=== PATIENT | female | born 1950 | race Caucasian/White ===

== ENCOUNTER → 2017-08-25 | Outpatient (CLI) | payer MEDICARE, BC ==
[~2017-08-25] MED LIST: BUPR100 PO; IBUP800 PO; LISHYD1012 PO; MAGOXI400 PO; OMEP20ER PO; POTASSIUM SUPPLEMENT PO; SIMV80 PO
[2017-08-25 12:22] LABS: Source, Urine Clean Catch
[2017-08-25 14:21] LABS: Bilirubin, Urine Neg (Neg); Blood, Urine 1+ (Neg); Glucose Qualitative, Urine Neg (Neg); Ketones, Urine Neg (Neg); Leukocyte Esterase, Urine Neg (Neg); Nitrite, Urine Neg (Neg); Protein, Urine Neg (Neg); Specific Gravity, Urine 1.005 (1.003-1.022); Urobilinogen, Urine NORM (Normal)
[2017-08-25 14:41] LABS: Hematocrit 38.7 % (33.0-51.0); Hemoglobin 13.3 g/dL (11.5-16.0)
[2017-08-25 14:53] LABS: Uric Acid, Blood 5.3 mg/dL (2.6-6.0)
[2017-08-25 14:58] LABS: Albumin, Blood 3.5 g/dL (3.4-5.0); Anion Gap 5 mmol/L (6-16); Blood Urea Nitrogen 20 mg/dL (8-24); CO2, Blood 30 mmol/L (21-32); Calcium, Blood 9.2 mg/dL (8.5-10.1); Chloride, Blood 102 mmol/L (98-108); Creatinine, Blood 1.11 mg/dL (0.40-1.00); Glomerular Filtration Rate 52 (60-); Glucose, Blood 91 mg/dL (70-99); Phosphorus, Blood 3.1 mg/dL (2.5-4.9); Potassium, Blood 4.1 mmol/L (3.5-5.5); Sodium, Blood 137 mmol/L (136-145)
[2017-08-25 14:59] LABS: Creatinine, Urine Random 82.8 mg/dL (27.00-270.00); Protein, Urine Random 8.8 mg/dL (0.0-11.9)
[2017-08-25 15:11] LABS: Appearance, Urine Clear (Clear); Color, Urine Yellow (P-Yellow)
[2017-08-25 15:14] LABS: Bacteria Rare /hpf; Squamous Epithelial Cells Few /hpf (Few); White Blood Cells, Urine 0-2 /hpf (0-5)
== END | disposition home or self-care (01) ==
LOC: OLS 12:18 → LAB SHORT 12:18
PROVIDERS: Internal Medicine
DX: N18.3 Chronic kidney disease, stage 3 (moderate) (principal); D63.1 Anemia in chronic kidney disease; E55.9 Vitamin D deficiency, unspecified; N25.81 Secondary hyperparathyroidism of renal origin; M10.9 Gout, unspecified
CPT/HCPCS: 36415; 80069; 81001; 82306; 82570; 83970; 84156; 84550; 85014; 85018

== ENCOUNTER 2017-10-26 13:00 | Emergency (ER) | payer MEDICARE, BC ==
[~2017-10-26] VITALS: Ht 162.6 cm; Wt 74.4 kg
[2017-10-26] MEDS ORDERED: LISI20 PO (13:16)
[2017-10-26] MEDS ORDERED: ANAS1 PO (13:17)
[2017-10-26] MEDS ORDERED: Cyclobenzaprine5 MG PO (14:30)
[2017-10-26] MEDS ORDERED: Percocet 5-3251 EACH PO (14:30)
== END 2017-10-26 14:40 | disposition home or self-care (01) ==
LOC: ER 13:00
DX: M25.551 Pain in right hip (principal); I12.9 Hypertensive chronic kidney disease with stage 1 through stage 4 chronic kidney disease, or unspecified chronic kidney disease; N18.9 Chronic kidney disease, unspecified; K21.9 Gastro-esophageal reflux disease without esophagitis; E78.00 Pure hypercholesterolemia, unspecified; Z79.899 Other long term (current) drug therapy; Z87.891 Personal history of nicotine dependence; Z96.641 Presence of right artificial hip joint
CPT/HCPCS: 73502; 96372; 99283-25; J1885

== ENCOUNTER 2018-07-01 08:50 | Day surgery (SDC) | payer MEDICARE, BC ==
[~2018-07-01] VITALS: Ht 162.6 cm; Wt 75.4 kg
[~2018-07-01 08:50] MED LIST changes: +ALBU90OI61 INH; +ANAS1 PO; +ANASTROZOLE PO; +Bupropion HCl100 M1 PO; +Cyclobenzaprine5 MG PO; +IBU800 MG PO; +LISI20 PO; +Omeprazole20 M1 PO; +Percocet 5-3251 EACH PO; +Vitamin D2000 UNIT PO
[2018-07-01] MEDS ORDERED: ANAS1 PO (09:45)
== END 2018-07-01 11:09 | disposition home or self-care (01) ==
LOC: ORSCSDS 08:50
PROVIDERS: Ophthalmology
PROC: 08RK3JZ Replacement of Left Lens with Synthetic Substitute, Percutaneous Approach (ICD-10-PCS; principal; 2018-07-01 10:30)
DX: H25.12 Age-related nuclear cataract, left eye (principal); I10 Essential (primary) hypertension; G47.33 Obstructive sleep apnea (adult) (pediatric); Z79.899 Other long term (current) drug therapy
CPT/HCPCS: 82947; J2001; J2250; J3010; J3301; J7120; V2632

== ENCOUNTER 2020-07-09 12:52 | Emergency (ER) | payer MEDICARE, BC ==
[~2020-07-09] VITALS: Ht 160 cm; Wt 75.8 kg
== END 2020-07-09 18:06 | disposition short-term general hospital (02) ==
LOC: ER 12:52
DX: K83.1 Obstruction of bile duct (principal); C25.9 Malignant neoplasm of pancreas, unspecified
CPT/HCPCS: 74177; 99284-25; J7030; Q9967

== ENCOUNTER → 2020-07-09 | Outpatient (CLI) | payer MEDICARE, BC ==
[~2020-07-09] MED LIST changes: -Bupropion HCl100 M1 PO; +PROAIR RESPICL90 MCG INH; +ZESTORETIC 20-1 EAC2 PO
[2020-07-09 10:45] LABS: BASOPHILS ABSOLUTE AUTO 0.06 K/mm3 (0.00-0.23); BASOPHILS PERCENT AUTO 1 % (0-2); EOSINOPHILS ABSOLUTE AUTO 1.07 K/mm3 (0.00-0.68); EOSINOPHILS PERCENT AUTO 9 % (0-6); Hematocrit 35.2 % (33.0-51.0); Hemoglobin 12.9 g/dL (11.5-16.0); IMMATURE GRAN ABSOLUTE AUTO 0.08 K/mm3 (0.00-0.10); IMMATURE GRAN PERCENT AUTO 1 % (0-1); LYMPHOCYTES ABSOLUTE AUTO 1.04 K/mm3 (0.84-5.20); LYMPHOCYTES PERCENT AUTO 9 % (21-46); MONOCYTES ABSOLUTE AUTO 0.65 K/mm3 (0.16-1.47); MONOCYTES PERCENT AUTO 5 % (4-13); Mean Corpuscular HGB 31.5 pg (26.0-34.0); Mean Corpuscular HGB Conc 36.6 g/dL (31.5-36.5); Mean Corpuscular Volume 86 fL (80-100); NEUTROPHILS ABSOLUTE AUTO 9.26 K/mm3 (1.96-9.15); NEUTROPHILS PERCENT AUTO 76 % (41-73); Platelet Count 470 K/mm3 (150-400); RDW Coefficient Variation 13.5 % (11.7-14.2); RDW Standard Deviation 42.1 fL (35.1-46.3); White Blood Cell Count 12.16 K/mm3 (4.00-11.30)
[2020-07-09 10:56] LABS: Albumin, Blood 3.1 g/dL (3.4-5.0); Albumin/Globulin Ratio 0.8 (0.8-1.8); Bilirubin, Total 15.8 mg/dL (0.1-1.0); Bun/Creatinine Ratio 16.8 (12.0-20.0); Calcium, Blood 9.4 mg/dL (8.5-10.1); Creatinine, Blood 1.13 mg/dL (0.40-1.00); Globulin, Blood 4.1 g/dL (2.2-4.0); Potassium, Blood 2.9 mmol/L (3.5-5.5); Total Protein, Blood 7.2 g/dL (6.4-8.2)
[2020-07-09 11:05] LABS: International Normalized Ratio 1.1; Prothrombin Time Results 11.8 Sec (9.7-11.5)
[2020-07-10 08:09] LABS: HBSAG SCREEN Negative (Negative); HEP A AB, IGM Negative (Negative); HEP B CORE AB, IGM Negative (Negative); HEP C VIRUS AB <0.1 (0.0-0.9)
== END | disposition home or self-care (01) ==
LOC: LAB SHORT 10:35
PROVIDERS: Physician Assistant
DX: N18.9 Chronic kidney disease, unspecified (principal); R17 Unspecified jaundice
CPT/HCPCS: 80053; 80074; 82140; 82150; 83690; 85025; 85610; 85730

== ENCOUNTER 2020-07-18 19:25 | Inpatient (IN) | payer MEDICARE, BC ==
[~2020-07-18] VITALS: Ht 162.6 cm; Wt 73.1 kg
[2020-07-18 20:37] LABS: BASOPHILS ABSOLUTE AUTO 0.11 K/mm3 (0.00-0.23); BASOPHILS PERCENT AUTO 1 % (0-2); EOSINOPHILS ABSOLUTE AUTO 0.64 K/mm3 (0.00-0.68); EOSINOPHILS PERCENT AUTO 4 % (0-6); Hematocrit 35.6 % (33.0-51.0); Hemoglobin 12.1 g/dL (11.5-16.0); IMMATURE GRAN ABSOLUTE AUTO 0.24 K/mm3 (0.00-0.10); IMMATURE GRAN PERCENT AUTO 1 % (0-1); LYMPHOCYTES ABSOLUTE AUTO 1.53 K/mm3 (0.84-5.20); LYMPHOCYTES PERCENT AUTO 8 % (21-46); MONOCYTES ABSOLUTE AUTO 1.63 K/mm3 (0.16-1.47); MONOCYTES PERCENT AUTO 9 % (4-13); Mean Corpuscular HGB 31.8 pg (26.0-34.0); Mean Corpuscular Volume 93 fL (80-100); Mean Platelet Volume 9.6 fL (9.1-12.4); NEUTROPHILS PERCENT AUTO 77 % (41-73); Platelet Count 596 K/mm3 (150-400); Red Blood Cell Count 3.81 M/mm3 (3.80-5.20); White Blood Cell Count 18.35 K/mm3 (4.00-11.30)
[2020-07-18 20:56] LABS: Albumin/Globulin Ratio 0.6 (0.8-1.8); Bilirubin, Direct 3.1 mg/dL (0.0-0.3); Bilirubin, Indirect 0.6 mg/dL (0.1-0.7); Bilirubin, Total 3.7 mg/dL (0.1-1.0); Bun/Creatinine Ratio 11.8 (12.0-20.0); Calcium, Blood 8.5 mg/dL (8.5-10.1); Creatinine, Blood 6.02 mg/dL (0.40-1.00); Globulin, Blood 5.2 g/dL (2.2-4.0); Potassium, Blood 3.8 mmol/L (3.5-5.5); Total Protein, Blood 8.2 g/dL (6.4-8.2)
[2020-07-18] MEDS ORDERED: MIRALAX17 G3 PO (21:35)
[2020-07-18] MEDS ORDERED: ANASTROZOLE PO (21:35)
[2020-07-18] MEDS ORDERED: BUPR100ER PO (21:36)
[2020-07-18 22:39] LABS: International Normalized Ratio 1.16; Prothrombin Time Results 12.4 Sec (9.7-11.5)
[2020-07-19 02:11] LABS: Source, Urine Catheter
[2020-07-19 02:13] LABS: Blood, Urine 3+ (Neg); Glucose Qualitative, Urine Neg (Neg); Ketones, Urine Neg (Neg); Leukocyte Esterase, Urine 2+ (Neg); Nitrite, Urine Neg (Neg); Protein, Urine 3+ (Neg); Specific Gravity, Urine 1.025 (1.003-1.022); Urobilinogen, Urine NORM (Normal)
[2020-07-19 02:15] LABS: Appearance, Urine Hazy (Clear); Bilirubin, Urine 2+ (Neg); Color, Urine Amber (P-Yellow)
[2020-07-19 02:18] LABS: Red Blood Cells, Urine 0-2 /hpf (0-2)
[2020-07-19 02:19] LABS: Amorphous Heavy (0-Heavy); Bacteria Mod /hpf; Granular Casts 0-2 /lpf (0); Squamous Epithelial Cells Few /hpf (Few); Transitional Epithelial Cells Few /hpf (0-Rare)
[2020-07-19 03:50] LABS: BASOPHILS ABSOLUTE AUTO 0.07 K/mm3 (0.00-0.23); BASOPHILS PERCENT AUTO 1 % (0-2); EOSINOPHILS ABSOLUTE AUTO 0.47 K/mm3 (0.00-0.68); EOSINOPHILS PERCENT AUTO 3 % (0-6); Hematocrit 31.3 % (33.0-51.0); Hemoglobin 10.3 g/dL (11.5-16.0); IMMATURE GRAN ABSOLUTE AUTO 0.15 K/mm3 (0.00-0.10); IMMATURE GRAN PERCENT AUTO 1 % (0-1); LYMPHOCYTES ABSOLUTE AUTO 1.86 K/mm3 (0.84-5.20); LYMPHOCYTES PERCENT AUTO 13 % (21-46); MONOCYTES ABSOLUTE AUTO 1.43 K/mm3 (0.16-1.47); MONOCYTES PERCENT AUTO 10 % (4-13); Mean Corpuscular HGB 31.5 pg (26.0-34.0); Mean Corpuscular HGB Conc 32.9 g/dL (31.5-36.5); Mean Corpuscular Volume 96 fL (80-100); Mean Platelet Volume 9.6 fL (9.1-12.4); NEUTROPHILS ABSOLUTE AUTO 10.95 K/mm3 (1.96-9.15); NEUTROPHILS PERCENT AUTO 73 % (41-73); Platelet Count 502 K/mm3 (150-400); RDW Coefficient Variation 14.1 % (11.7-14.2); RDW Standard Deviation 49.8 fL (35.1-46.3); Red Blood Cell Count 3.27 M/mm3 (3.80-5.20); White Blood Cell Count 14.93 K/mm3 (4.00-11.30)
[2020-07-19 04:11] LABS: Albumin, Blood 2.4 g/dL (3.4-5.0); Albumin/Globulin Ratio 0.5 (0.8-1.8); Bilirubin, Total 2.9 mg/dL (0.1-1.0); Bun/Creatinine Ratio 13.9 (12.0-20.0); Calcium, Blood 7.4 mg/dL (8.5-10.1); Creatinine, Blood 5.24 mg/dL (0.40-1.00); Globulin, Blood 4.4 g/dL (2.2-4.0); Potassium, Blood 3.6 mmol/L (3.5-5.5); Total Protein, Blood 6.8 g/dL (6.4-8.2)
--- NOTE | 2020-07-19 06:30 | NUR ---
PATIENT ARRIVED FROM ED AROUND 2305, AT BEDSIDE, ABLE TO MAKE NEEDS KNOWN ALERT AND ORIENTATED SLOW IN RESPONSES, DIFFICULTY GETTING COMPLETE HISTORY PATIENT REPORTED THAT SHE SMOKED SOME HASH PRIOR TO COMING TO THE HOSPITAL FOR PAIN CONTROL, PATIENT WAS ABLE TO URINATE VIA BEDSIDE COMMODE AROUND 0200, UA SENT TO LAB, CALLS APPROPRIATELY AND FOLLOWS COMMAND, BILI DRAIN IS PATENT WITH BROWN CLEAR LIQUID DRAINAGE, MEPLIX APPLIED TO COCCYX TO PROTECT SKIN, WOUND PICTURES TAKEN IN CHART, PATIENT REFUSED WALLET TO BE SENT TO [facility].
--- NOTE | 2020-07-19 09:30 | NUR ---
UPDATE PHYSICIAN AT BEDSIDE. CONSULT TO BE PUT IN FOR NEPHROLOGY BY THIS RN. INCREASING FLUIDS PER PHYSICIAN ORDER. STRICT I&O PER PHYSICIAN.
--- NOTE | 2020-07-19 10:15 | NUR ---
UPDATE PHYSICIAN AT BEDSIDE. PHYSICIAN ORDERS TO HAVE NEPHROLOGY CONUSLTED AND ONCOLOGIST UPDATED. NO OTHER ORDERS AT THIS TIME.
--- NOTE | 2020-07-19 12:43 | NUR ---
UPDATE PT'S ONCOLOGIST UPDATED PER PHYSICIAN AND PT. SPOKE WITH DR. MONTES OFFICE.
[2020-07-19 17:22] LABS: Albumin, Blood 2.3 g/dL (3.4-5.0); Anion Gap 13 mmol/L (6-16); Blood Urea Nitrogen 76 mg/dL (8-24); Bun/Creatinine Ratio 23.8 (12.0-20.0); CO2, Blood 15 mmol/L (21-32); Chloride, Blood 107 mmol/L (98-108); Creatinine, Blood 3.19 mg/dL (0.40-1.00); Glomerular Filtration Rate 15 (60-); Glucose, Blood 99 mg/dL (70-99); Phosphorus, Blood 6.5 mg/dL (2.5-4.9); Potassium, Blood 3.3 mmol/L (3.5-5.5); Sodium, Blood 135 mmol/L (136-145)
--- NOTE | 2020-07-19 17:30 | NUR ---
REPORT GIVEN REPORT GIVEN TO ERICKSON ALDANA. PT TO BE MOVED TO ROOM 305.
--- NOTE | 2020-07-19 17:59 | NUR ---
PT TRANSPORTED PT TRANSPORTED BY WHEELCHAIR WITH ALL BELONGINGS WITH VETERINARY SURGERY TECHNOLOGIST TO ROOM 305. HOME MEDICATION SENT TO PHARMACY.
--- NOTE | 2020-07-19 19:20 | NUR ---
RECEIVED PT FROM RENE KING RN AT 1800.
--- NOTE | 2020-07-20 04:17 | NUR ---
SHIFT SUMMARY ADMITTED FOR RENAL FAILURE/HYPOTENSION. FULL CODE. PLAN TO MONITOR KIDNEY FUNCTION WITH FLUID ADMINISTRATION. PT HAS BEEN ON FLUIDS AT 125 ML/HR ALL SHIFT. PT COMPLAINED OF CHRONIC BACK PAIN AND MEDICATED X1. PT AMBULATING WITH FWW TO RESTROOM. NO NEW CONCERNS THIS SHIFT.
[2020-07-20 05:10] LABS: BASOPHILS PERCENT AUTO 1 % (0-2); EOSINOPHILS ABSOLUTE AUTO 2.54 K/mm3 (0.00-0.68); EOSINOPHILS PERCENT AUTO 21 % (0-6); Hematocrit 30.1 % (33.0-51.0); Hemoglobin 10.2 g/dL (11.5-16.0); IMMATURE GRAN ABSOLUTE AUTO 0.06 K/mm3 (0.00-0.10); IMMATURE GRAN PERCENT AUTO 1 % (0-1); LYMPHOCYTES ABSOLUTE AUTO 1.34 K/mm3 (0.84-5.20); LYMPHOCYTES PERCENT AUTO 11 % (21-46); MONOCYTES ABSOLUTE AUTO 1.19 K/mm3 (0.16-1.47); MONOCYTES PERCENT AUTO 10 % (4-13); Mean Corpuscular HGB 31.9 pg (26.0-34.0); Mean Corpuscular HGB Conc 33.9 g/dL (31.5-36.5); Mean Corpuscular Volume 94 fL (80-100); Mean Platelet Volume 10.3 fL (9.1-12.4); NEUTROPHILS ABSOLUTE AUTO 6.97 K/mm3 (1.96-9.15); NEUTROPHILS PERCENT AUTO 57 % (41-73); Platelet Count 542 K/mm3 (150-400); RDW Standard Deviation 48.2 fL (35.1-46.3)
--- NOTE | 2020-07-20 05:12 | NUR ---
CTA/MILK WAGON DRIVER I HAVE ASSESSED THIS PT. I HAVE READ THE MILK WAGON DRIVER DOCUMENTATION AND I AGREE. SHIFT SUMMARY IN MILK WAGON DRIVER NOTES
[2020-07-20 05:27] LABS: Albumin, Blood 2.4 g/dL (3.4-5.0); Anion Gap 10 mmol/L (6-16); Blood Urea Nitrogen 67 mg/dL (8-24); Bun/Creatinine Ratio 30.9 (12.0-20.0); CO2, Blood 15 mmol/L (21-32); Calcium, Blood 8.3 mg/dL (8.5-10.1); Chloride, Blood 110 mmol/L (98-108); Creatinine, Blood 2.17 mg/dL (0.40-1.00); Glomerular Filtration Rate 24 (60-); Glucose, Blood 125 mg/dL (70-99); Phosphorus, Blood 4.6 mg/dL (2.5-4.9); Potassium, Blood 3.5 mmol/L (3.5-5.5); Sodium, Blood 135 mmol/L (136-145)
--- NOTE | 2020-07-20 19:18 | NUR ---
SHIFT SUMMARY: NO ACUTE CHANGES TO REPORT THIS SHIFT. PT A&O; CALM AND COOPERATIVE WITH CARE. PT UP WITH SBA. NO C/O PAIN THIS SHIFT. TELE IN PLACE; SR @ 78 PER CREDIT RISK REVIEW OFFICER DURING MORNING ASSESSMENT. BILIARY DRAIN LUQ; PATENT & DRAINING. CKDS3; DR CALDERON FOLLOWING. FLUIDS CONTINUING. REPORT GIVEN TO ONCOMING RN.
--- NOTE | 2020-07-21 04:26 | NUR ---
CRITICAL POWER TECHNICIAN SUMMARY PATIENT ADMITTED FOR RENAL FAILURE. FULL CODE. PLAN IS POSSIBLE D/C HOME TODAY. PT HAS BILIARY DRAIN IN LUQ WHICH IS PATENT. D5 1/5 ns WITH 20 MEQ K+ INFUSING AT 100 MLS/HR. TELEMETRY: NSR AT 67 BPM. THEPT HAS BEEN DIAGNOSED W PANCREATIC CANCER W METS TO THE LIVER, DR LAMBERT WILL MANAGE OUTPT. MEDICATED 1X WITH TYLENOL. DR CALDERON IS RENAL CONSULT. NO NEW CONCERNS THIS SHIFT. PT REFUSED EVENING DOSE OF WELLBUTRIN. WILL CONTINUE TO MONITOR.
--- NOTE | 2020-07-21 05:06 | NUR ---
CTA/KENNEL OPERATOR I HAVE ASSESSED THIS PT. I HAVE READ THE KENNEL OPERATOR NOTES AND I AGREE. SHIFT SUMMARY IN STUDENT NURSING NOTES.
[2020-07-21 05:17] LABS: BASOPHILS ABSOLUTE AUTO 0.15 K/mm3 (0.00-0.23); BASOPHILS PERCENT AUTO 1 % (0-2); EOSINOPHILS ABSOLUTE AUTO 3.44 K/mm3 (0.00-0.68); EOSINOPHILS PERCENT AUTO 26 % (0-6); Hematocrit 29.9 % (33.0-51.0); Hemoglobin 10.1 g/dL (11.5-16.0); IMMATURE GRAN ABSOLUTE AUTO 0.06 K/mm3 (0.00-0.10); IMMATURE GRAN PERCENT AUTO 1 % (0-1); LYMPHOCYTES ABSOLUTE AUTO 1.42 K/mm3 (0.84-5.20); LYMPHOCYTES PERCENT AUTO 11 % (21-46); MONOCYTES ABSOLUTE AUTO 1.14 K/mm3 (0.16-1.47); MONOCYTES PERCENT AUTO 9 % (4-13); Mean Corpuscular HGB 31.5 pg (26.0-34.0); Mean Corpuscular HGB Conc 33.8 g/dL (31.5-36.5); Mean Corpuscular Volume 93 fL (80-100); NEUTROPHILS ABSOLUTE AUTO 6.97 K/mm3 (1.96-9.15); NEUTROPHILS PERCENT AUTO 53 % (41-73); NRBC ABSOLUTE 0.02 K/mm3 (0.00-0.02); NRBC Auto 0.2 /100 WBC (0.0-0.2); Platelet Count 581 K/mm3 (150-400); RDW Coefficient Variation 14.2 % (11.7-14.2); Red Blood Cell Count 3.21 M/mm3 (3.80-5.20); White Blood Cell Count 13.18 K/mm3 (4.00-11.30)
[2020-07-21 05:40] LABS: Albumin, Blood 2.4 g/dL (3.4-5.0); Anion Gap 10 mmol/L (6-16); Blood Urea Nitrogen 45 mg/dL (8-24); Bun/Creatinine Ratio 34.9 (12.0-20.0); CO2, Blood 17 mmol/L (21-32); Calcium, Blood 8.9 mg/dL (8.5-10.1); Chloride, Blood 109 mmol/L (98-108); Creatinine, Blood 1.29 mg/dL (0.40-1.00); Glomerular Filtration Rate 44 (60-); Glucose, Blood 102 mg/dL (70-99); Phosphorus, Blood 2.6 mg/dL (2.5-4.9); Potassium, Blood 3.7 mmol/L (3.5-5.5); Sodium, Blood 136 mmol/L (136-145)
[2020-07-21] MEDS ORDERED: ACET325 PO (12:04)
[2020-07-21] MEDS ORDERED: COLACE100 MG PO (12:05)
[2020-07-21] MEDS ORDERED: MEGESTROL400 MG/11 PO (12:06)
--- NOTE | 2020-07-21 15:37 | NUR ---
PATIENT DISCHARGE: PATIENT DISCHARGED TO HOME THIS SHIFT. MEDICATION RECONCILIATION COMPLETED; [facility] DISCHARGE EDUCATION COMPLETED WITH PATIENT AND FAMILY. PATIENT TRANSPORTED TO EXIT BY [facility] STAFF WITH WHEELCHAIR AT 1410. PATIENT DEPARTED [facility] VIA PRIVATE AUTO.
[2020-07-24] MEDS ORDERED: OXYC5 PO (18:37)
[2020-08-06] MEDS ORDERED: LISINOPRIL-HCT1 EAC1 PO (22:33)
[2020-08-06] MEDS ORDERED: SIMV80 PO (22:34)
[2020-08-06] MEDS ORDERED: OMEP20ER PO (22:34)
[2020-08-06] MEDS ORDERED: MEGESTROL400 MG/11 PO (22:36)
[2020-08-06] MEDS ORDERED: FAMO20 PO (22:37)
[2020-08-08] MEDS ORDERED: HYDMOR2 PO (15:07)
[2020-08-08] MEDS ORDERED: ONDA4 SL (15:08)
[2020-08-08] MEDS ORDERED: DOCUZEN 8.6-501 EACH PO (15:09)
== END 2020-07-21 14:10 | disposition home or self-care (01) | DRG 683 ==
LOC: ER 19:25 → ERHOLD 21:16 → PCU 21:16 → MEDS 07-19 17:43 → ENPENDDIS 07-21 11:17 → MEDS 07-21 14:10
PROVIDERS: Internal Medicine; Physician Assistant; ADMIT Internal Medicine
DX: N17.9 Acute kidney failure, unspecified (principal); C25.9 Malignant neoplasm of pancreas, unspecified; E87.1 Hypo-osmolality and hyponatremia; C78.7 Secondary malignant neoplasm of liver and intrahepatic bile duct; E87.2 Acidosis; E86.0 Dehydration; I95.9 Hypotension, unspecified; D72.829 Elevated white blood cell count, unspecified; E87.6 Hypokalemia; R63.0 Anorexia; Z68.27 Body mass index [BMI] 27.0-27.9, adult; D63.1 Anemia in chronic kidney disease; N18.30 Chronic kidney disease, stage 3 unspecified; I12.9 Hypertensive chronic kidney disease with stage 1 through stage 4 chronic kidney disease, or unspecified chronic kidney disease; E11.22 Type 2 diabetes mellitus with diabetic chronic kidney disease; M10.9 Gout, unspecified; G47.33 Obstructive sleep apnea (adult) (pediatric); Z79.899 Other long term (current) drug therapy; Z98.890 Other specified postprocedural states; Z90.710 Acquired absence of both cervix and uterus; Z90.13 Acquired absence of bilateral breasts and nipples; Z87.891 Personal history of nicotine dependence; Z85.3 Personal history of malignant neoplasm of breast
CPT/HCPCS: 36415; 74176; 80048; 80053; 80069; 80076; 81001; 82140; 83605; 83690; 85025; 85610; 87040; 87077; 87086; 87186; 96361; 96374; 97116; 97161; 97165; 97530; 97535; 99285-25; A9270; J1644; J2270; J7030

== ENCOUNTER 2020-07-24 14:43 | Inpatient (IN) | payer MEDICARE, BC ==
[~2020-07-24] VITALS: Ht 162.6 cm; Wt 71.7 kg
[~2020-07-24 14:43] MED LIST changes: +ACET325 PO; +BUPR100ER PO; +COLACE100 MG PO; +MEGESTROL400 MG/11 PO; +MIRALAX17 G3 PO
[2020-07-24 16:53] LABS: BASOPHILS ABSOLUTE AUTO 0.16 K/mm3 (0.00-0.23); BASOPHILS PERCENT AUTO 1 % (0-2); EOSINOPHILS ABSOLUTE AUTO 3.43 K/mm3 (0.00-0.68); EOSINOPHILS PERCENT AUTO 14 % (0-6); Hematocrit 36.9 % (33.0-51.0); Hemoglobin 12.2 g/dL (11.5-16.0); IMMATURE GRAN PERCENT AUTO 1 % (0-1); LYMPHOCYTES ABSOLUTE AUTO 1.98 K/mm3 (0.84-5.20); LYMPHOCYTES PERCENT AUTO 8 % (21-46); MONOCYTES ABSOLUTE AUTO 0.95 K/mm3 (0.16-1.47); MONOCYTES PERCENT AUTO 4 % (4-13); Mean Corpuscular HGB 31.3 pg (26.0-34.0); Mean Corpuscular HGB Conc 33.1 g/dL (31.5-36.5); Mean Corpuscular Volume 95 fL (80-100); NEUTROPHILS ABSOLUTE AUTO 17.17 K/mm3 (1.96-9.15); NEUTROPHILS PERCENT AUTO 71 % (41-73); RDW Coefficient Variation 14.6 % (11.7-14.2); RDW Standard Deviation 50.8 fL (35.1-46.3); White Blood Cell Count 23.99 K/mm3 (4.00-11.30)
[2020-07-24 17:07] LABS: Mean Platelet Volume 9.6 fL (9.1-12.4); Platelet Count 620 K/mm3 (150-400)
[2020-07-24 17:13] LABS: Albumin, Blood 3.2 g/dL (3.4-5.0); Albumin/Globulin Ratio 0.6 (0.8-1.8); Bun/Creatinine Ratio 26.9 (12.0-20.0); Calcium, Blood 8.9 mg/dL (8.5-10.1); Creatinine, Blood 2.34 mg/dL (0.40-1.00); Globulin, Blood 5.1 g/dL (2.2-4.0); Potassium, Blood 4.9 mmol/L (3.5-5.5); Total Protein, Blood 8.3 g/dL (6.4-8.2)
[2020-07-24 17:26] LABS: BASOPHILS ABSOLUTE MAN 0.23 K/mm3 (0.00-0.23); BASOPHILS PERCENT MAN 1 % (0-2); EOSINOPHILS ABSOLUTE MAN 4.07 K/mm3 (0.00-0.68); EOSINOPHILS PERCENT MAN 17 % (0-6); LYMPHOCYTES ABSOLUTE MAN 0.95 K/mm3 (0.84-5.20); LYMPHOCYTES PERCENT MAN 4 % (21-46); MONOCYTES ABSOLUTE MAN 0.71 K/mm3 (0.16-1.47); MONOCYTES PERCENT MAN 3 % (4-13); NEUTROPHILS ABSOLUTE MAN 17.99 K/mm3 (1.96-9.15); SEG NEUTROPHILS PERCENT MAN 75 % (41-73); TOTAL CELLS COUNTED 100
[2020-07-24 18:14] LABS: Source, Urine Clean Catch
[2020-07-24 18:17] LABS: Appearance, Urine Hazy (Clear); Blood, Urine 1+ (Neg); Color, Urine Brown (P-Yellow); Glucose Qualitative, Urine Neg (Neg); Ketones, Urine 1+ (Neg); Leukocyte Esterase, Urine 1+ (Neg); Nitrite, Urine Pos (Neg); Protein, Urine 2+ (Neg); Specific Gravity, Urine 1.025 (1.003-1.022); Urobilinogen, Urine 1+ (Normal)
[2020-07-24 18:25] LABS: Bilirubin, Urine 2+ (Neg)
[2020-07-24] MEDS ORDERED: OXYC5 PO ×2 (18:37)
[2020-07-24 18:39] LABS: Amorphous Light (0-Heavy); Bacteria Mod /hpf; Mucus Light (0-Heavy); Renal Epithelial Few /hpf (0-Rare); Squamous Epithelial Cells Mod /hpf (Few); Transitional Epithelial Cells Few /hpf (0-Rare)
[2020-07-24] MEDS ORDERED: SIMV80 PO (20:10)
[2020-07-24] MEDS ORDERED: BUPR100ER PO (20:13)
--- NOTE | 2020-07-25 00:54 | NUR ---
PATIENT ALERT ORIENTATED ABLE TO MAKE NEEDS KNOWN, FOLLOWS COMMANDS, CALLS APPROPRIATELY, STAND BY ASSIST WITH WALKER TO THE BATHROOM, PATIENT IS VOIDING CLEAR TEA COLOR URINE NONMALODOROUS, RFA IV IS PATENT AND NS RUNNING AT 100 ML HOUR. PATIENT WAS ABLE TO PROVIDE HISTORY DURING ADMISSION, NEPHROLOGY, ONCOLOGY AND PALLITIVE CARE CONSULTS WERE CALLED IN.
[2020-07-25 03:52] LABS: Hematocrit 33.9 % (33.0-51.0); Hemoglobin 11.2 g/dL (11.5-16.0); Mean Corpuscular Volume 94 fL (80-100); Mean Platelet Volume 9.5 fL (9.1-12.4); Platelet Count 506 K/mm3 (150-400); RDW Coefficient Variation 14.5 % (11.7-14.2); RDW Standard Deviation 49.8 fL (35.1-46.3); Red Blood Cell Count 3.61 M/mm3 (3.80-5.20); White Blood Cell Count 17.91 K/mm3 (4.00-11.30)
[2020-07-25 04:14] LABS: BAND PERCENT MAN 28 % (0-8); BASOPHILS ABSOLUTE MAN 0.35 K/mm3 (0.00-0.23); BASOPHILS PERCENT MAN 2 % (0-2); EOSINOPHILS ABSOLUTE MAN 1.97 K/mm3 (0.00-0.68); EOSINOPHILS PERCENT MAN 11 % (0-6); LYMPHOCYTES ABSOLUTE MAN 1.97 K/mm3 (0.84-5.20); LYMPHOCYTES PERCENT MAN 11 % (21-46); MONOCYTES ABSOLUTE MAN 0.17 K/mm3 (0.16-1.47); MONOCYTES PERCENT MAN 1 % (4-13); NEUTROPHILS ABSOLUTE MAN 13.43 K/mm3 (1.96-9.15); SEG NEUTROPHILS PERCENT MAN 47 % (41-73); TOTAL CELLS COUNTED 100
[2020-07-25 04:15] LABS: Albumin, Blood 2.6 g/dL (3.4-5.0); Albumin/Globulin Ratio 0.6 (0.8-1.8); Bilirubin, Total 1.5 mg/dL (0.1-1.0); Bun/Creatinine Ratio 31.9 (12.0-20.0); Calcium, Blood 8.3 mg/dL (8.5-10.1); Creatinine, Blood 1.66 mg/dL (0.40-1.00); Globulin, Blood 4.1 g/dL (2.2-4.0); Potassium, Blood 4.3 mmol/L (3.5-5.5); Total Protein, Blood 6.7 g/dL (6.4-8.2)
--- NOTE | 2020-07-25 09:43 | NUR ---
Palliative Care Consult for AD/POLST, Advanced Care Planning, End Stage Disease, End of Life/Comfort Care, New Diagnosis, and Symptom Management. Pt admitted to the hospital for Acute Renal Failure. Pt's medical history and comorbidities include: Pancreatic Cancer with Metastases to the Liver, Biliary Drain, HTN, DM2, MATHIEU, History of Breast Cancer, Gout, CKD3, and Neck Osteophyte. Spoke with Resident Dr Mariee prior to Pt visit and discussed case. Spoke with Bedside RN Diomedes and discussed case. Pt's goal is to have her new built and completed before she passes away. Pt also plans to pursure "Right to " Program. Pt resting in bed upon arrival. Pt reports no pain and dyspnea at this time. Pt reports her current pain regimen causes nausea and is not always convienant to pre-medicate with anti nausea medication. She states on occasion she will take CBD gummies prior to taking her pain medication. Continued therapeutic listening as Pt expresses her love for her family. Pt is and has a son who lives local and 3 daughters. She expresses how proud she is of each. Most of her family lives in [facility]. One daughter is in her surgical residency in [place] and son in law lives in [place]. Son in law is her contractor and is building her home. Son in law and Pt's have been working tirelessly since March in attempts to complete the home quickly. Pt reports hope of home being complete within a month. Listened as Pt expresses her love for her 2 dogs who love to play with birds. Pt states having a home in [facility] and understand she may not be able to visit there again. Pt intermittenly tearful and this RN offered emotional support. Continued therapeutic listening and answered questions regarding "right to ". Pt is hopeful of being a candidate for some clinical trial she read about regarding stage 4 pancreatic cancer. Suggested to bring these trials up to Dr Alvarenga when he visits. Suggested to inquire about Fentanyl patch with oncologis or hospitalist to assist with pain management. Continued therapeutic listening. Pt expresses appreciation of visit and reports no other concerns at this time. Pt agreeable with continued Palliative Care visits. Palliative Care will remain available for supportive and therapeutic visits.
--- NOTE | 2020-07-25 16:57 | NUR ---
REPORT GIVEN TO RICKEY ALMENDAREZ ON MEDICAL.
--- NOTE | 2020-07-25 18:17 | NUR ---
PT ARRIVED TO UNIT AT APPROX 1715 FROM PCU. PT WAS ABLE TO AMBULATE TO THE BED WITH NO ASSISTANCE, SBA FOR LINE MANAGEMENT. PT A&Ox4, NS RUNNING @ 100 ML/HR. DENIES ANY PAIN AT THIS TIME. REPORTS SOME ITCHING IN THE L HAND AND PAREDES. BILIARY DRAIN PATENT AND DRAINING. WILL REPORT TO ONCOMING RN. PT IS CURRENRTLY RESTING IN BED, WITH CALL LIGHT WITHIN REACH. CALLS APPROPRIATELY.
--- NOTE | 2020-07-25 20:22 | NUR ---
SPOKE TO DR. GODOY REGARDING ALLERGIC REACTION TO IV ROCEPHIN. NEW ORDERS OBTAINED FOR BENADRYL, CHANGE IN ANTIBOTIC.
--- NOTE | 2020-07-25 21:52 | NUR ---
POSTIVE BLOOD CULTURES-GRAM +COCCI IN CLUSTERS. PATIENT ON LEVEQUIN WHICH COVERS IT.
--- NOTE | 2020-07-25 22:06 | NUR ---
ASSUMPTION OF CARE. AOX3, ASSISTED TO BATHROOM. VOIDED 100 CC. EMPTIED DRAIN 325 OF GREENISH BILE OUTPUT. RASH/HIVES HAS DEVELOPED OVER THE ENTIRE BODY, VERY ITCHY AND IRRITATED. HAD ROCEPHIN FOR THE FIRST TIME. MD NOTIFED, CHANGED ANTIBOTIC AND ADMINISTERED BENADRYL FOR REACTION. SMALL BM NOTED. URINE WAS TEA COLOR AND SMALL AMOUNT. NO EDEMA. LUNGS AND HEART NORMAL. ABDOMIN DISTENDED, FIRM. IVF INFUSING. POSITIVE BLOOD CULTURE-GRAM POSTIVE COCCI IN CLUSTERS. NOW ON LEVAQUIN. VSS/AFEBRILE. WILL MONITOR AND TREAT. CALL LIGHT IN REACH.
--- NOTE | 2020-07-26 06:30 | NUR ---
SHIFT SUMMARY: AOX3, SBA TO BATHROOM. PAIN TO MID BACK, STATES SHE NEEDS A CHRIOPRACTOR TO PUT HER IN ALIGNMENT. MEDICATED FOR PAIN X1. DID NOT REPORT ANY ABDOMINAL PAIN THIS SHIFT. FREQUENT URINATION, WITH SMALL AMOUNT OF OUTPUT. URINE DARK ORANGE, CLEAR. HEAD TO TOE HIVES/RASH AFTER RECEIVING ROCEPHIN. MD NOTIFIED. ANTIBOTIC CHANGED TO LEVEQUIN, BENADRYL ORDERED. RASH STILL PRESENT BUT NOT ITCHY. POSTIVE BLOOD CULTURE-GRAM + COCCI IN CLUSTERS. LEVAQUIN COVERS. BILIARY DRAIN OUTPUT 550, GREENISH YELLOW BILE. OCCATIONAL NAUSEA, NO ANTIMETIC MEDS. SUPPOSE TO HAVE LIVER BIOPSY TODAY. IVF INFUSED ALL NIGHT WITH NO PROBLEMS. WILL REPORT TO DAYSHIFT. CALL LIGHT IN REACH.
--- NOTE | 2020-07-26 06:39 | NUR ---
SHIFT SUMMARY: AOX3, REMAINED IN BED THIS SHIFT, REPORTED FATIQUED, DIZZINESS WITH MOVEMENT. VSS/AFEBRILE. NO CHEST PAIN OR OTHER CARDIAC SYMPTOMS THIS SHIFT. SLEPT WELL. URINE DARK ORANGE CLEAR. LAST TROPONIN 0.278. BS 150. MEDICATED WITH INSULIN. CARIOD ARTERY US SHOWED BILATERAL CAROTID ATHERSCLEROSIS RIGHT > LEFT WITH 50% NARROWING. ECHO SHOWED EF AT 50-55%. TELE REPORTED SINUS TO SINUS JON. NO EVENTS THIS SHIFT. HEPARIN STILL INFUSING AT 16 UNITS/KG/HR. NAUSEA SUBSIDED T/O THE NIGHT. WILL REPORT TO DAYSHIFT. CALL LIGHT IN REACH.
--- NOTE | 2020-07-26 11:13 | NUR ---
Pt resting in bed upon arrival. Pt expressing significant discomfort reporting severe itching. Pt had an adverse reaction to antibiotic given yesterday. Benadryl was given with good effect. Pt started developing severe itching again during this administration of new antibiotic. Bedside RN Kat made aware. Kat stops antibiotic and offers Benadryl. Vitals taken with plan for Kat to call hospitalist. Remained at bedside and offered therapeutic listening. Ended visit to allow Pt to rest. Pt expresses appreciation of visit and is agreeable for continued supportive visits. Palliative Care will remain available.
[2020-07-26 12:14] LABS: Hemoglobin 11.4 g/dL (11.5-16.0); Mean Corpuscular HGB 31.2 pg (26.0-34.0); Mean Corpuscular HGB Conc 33.5 g/dL (31.5-36.5); Mean Corpuscular Volume 93 fL (80-100); Mean Platelet Volume 9.6 fL (9.1-12.4); Platelet Count 444 K/mm3 (150-400); RDW Coefficient Variation 14.7 % (11.7-14.2); RDW Standard Deviation 50.5 fL (35.1-46.3); Red Blood Cell Count 3.65 M/mm3 (3.80-5.20); White Blood Cell Count 12.58 K/mm3 (4.00-11.30)
--- NOTE | 2020-07-26 12:26 | NUR ---
PT EXPERIENCED A SIMILAR REACTION TO LEVAQUIN AND SHE DID TO ROCEPHIN THIS AM. PT BEGAN TO ITCH AND BROKE OUT IN HIVES. LEVAQUIN WAS IMMEDIATELY STOPPED AND IV BENADRYL WAS PROVIDED. VSS DURING THIS TIME. PROVIDER WAS NOTIFIED. ITCHING STARTED TO SUBSIDE AND PT WAS ABLE TO REST. PT IS CURRENTLY SLEEPING AND APPEARS TO BE IN NO DISTRESS. EQUAL CHEST R/F AND PT DENIES ANY SOB.
[2020-07-26 12:34] LABS: Albumin, Blood 2.5 g/dL (3.4-5.0); Anion Gap 10 mmol/L (6-16); Blood Urea Nitrogen 27 mg/dL (8-24); Bun/Creatinine Ratio 23.5 (12.0-20.0); CO2, Blood 15 mmol/L (21-32); Chloride, Blood 110 mmol/L (98-108); Creatinine, Blood 1.15 mg/dL (0.40-1.00); Glomerular Filtration Rate 50 (60-); Glucose, Blood 124 mg/dL (70-99); Phosphorus, Blood 2.2 mg/dL (2.5-4.9); Potassium, Blood 4.2 mmol/L (3.5-5.5); Sodium, Blood 135 mmol/L (136-145)
[2020-07-26 12:37] LABS: BAND PERCENT MAN 13 % (0-8); BASOPHILS PERCENT MAN 0 % (0-2); EOSINOPHILS PERCENT MAN 8 % (0-6); LYMPHOCYTES PERCENT MAN 4 % (21-46); MONOCYTES PERCENT MAN 0 % (4-13); NEUTROPHILS ABSOLUTE MAN 11.07 K/mm3 (1.96-9.15); SEG NEUTROPHILS PERCENT MAN 75 % (41-73); TOTAL CELLS COUNTED 100
--- NOTE | 2020-07-26 17:38 | NUR ---
SHIFT SUMMARY PT HAD ALLERGIC REACTION TO LEVAQUIN, WAS TREATED WITH BENADRYL X1, HAS SINCE STABALIZED. RASH STILL NOTED ALL OVER BODY. VSS. TREATED FEVER X1 c TYLENOL. DENIES ANY DISRESS, IS A BIT MORE LETHARGIC TODAY. LIVER BIOPSY TO TAKE PLACE TOMORROW. BILIARY DRAIN PATENT AND DRAINING. NS RUNNING @ 100. PT IS CURRENTLY RESTING IN BED, CALL LIGHT WITHIN REACH. CALLS APPROPRIATELY.
--- NOTE | 2020-07-27 05:24 | NUR ---
SHIFT SUMMARY PT RESTED WELL FOR MUCH OF THE NIGHT. COMPLAINED OF SOME ABD PAIN. MEDICATED X 1 W/ ROXICODONE 5 MG. PT HAVING LOW GRADE FEVERS, 99.5 AND 100.1. MEDICATED X 2 W/ TYLENOL. AFEBRILE WITH RECHECK THIS AM AT 98.6. BILIARY DRAIN INTACT. SITE WITH NO SIGNS OF INFECTION. APPROX 400 MLS OUT FROM BILIARY DRAIN THIS EVENING. PLAN FOR PT TO HAVE LIVER BIOPSY DONE TODAY. NPO SINCE MIDNIGHT EXCEPT FOR ONE DOSE OF TYLENOL WITH A SMALL SIP OF WATER. OTHERWISE PT HAD AN UNEVENTFUL NIGHT. VITAL SIGNS STABLE. WILL CONTINUE TO MONITOR.
[2020-07-27 05:46] LABS: Hematocrit 30.9 % (33.0-51.0); Hemoglobin 10.5 g/dL (11.5-16.0); Mean Corpuscular HGB 31.7 pg (26.0-34.0); Mean Corpuscular Volume 93 fL (80-100); Mean Platelet Volume 9.6 fL (9.1-12.4); Platelet Count 399 K/mm3 (150-400); RDW Coefficient Variation 14.8 % (11.7-14.2); Red Blood Cell Count 3.31 M/mm3 (3.80-5.20); White Blood Cell Count 13.09 K/mm3 (4.00-11.30)
[2020-07-27 06:04] LABS: Bun/Creatinine Ratio 20.4 (12.0-20.0); Calcium, Blood 7.9 mg/dL (8.5-10.1); Creatinine, Blood 1.08 mg/dL (0.40-1.00); Potassium, Blood 4.2 mmol/L (3.5-5.5)
[2020-07-27 06:34] LABS: BAND PERCENT MAN 11 % (0-8); BASOPHILS PERCENT MAN 0 % (0-2); EOSINOPHILS ABSOLUTE MAN 1.57 K/mm3 (0.00-0.68); EOSINOPHILS PERCENT MAN 12 % (0-6); LYMPHOCYTES ABSOLUTE MAN 1.17 K/mm3 (0.84-5.20); LYMPHOCYTES PERCENT MAN 9 % (21-46); MONOCYTES ABSOLUTE MAN 0.65 K/mm3 (0.16-1.47); MONOCYTES PERCENT MAN 5 % (4-13); NEUTROPHILS ABSOLUTE MAN 9.68 K/mm3 (1.96-9.15); SEG NEUTROPHILS PERCENT MAN 63 % (41-73); TOTAL CELLS COUNTED 100
--- NOTE | 2020-07-27 09:40 | NUR ---
Support visit this AM. Pt resting in bed upon arrival. Pt denies pain and nausea. She does reports some irritation from the swelling and redness in her hands. Offered therapeutic listening. Pt requests ice water and ice pack for her hands. Pt expresses appreciation of visit. Provided ice pack and ice water after speaking with Bedside ERICKSON Good. Palliative Care will remain available.
--- NOTE | 2020-07-27 18:21 | NUR ---
SHIFT SUMMARY PATIENT MEDICATED X1 FOR PAIN, AND X1 FOR ITCHING. DENIES NAUSEA AND SHORTNESS OF BREATH. UP SBA TO BR. LIVER BIOPSY THIS MORNING. BILIARY DRAIN PATENT AND DRAINING DARK BROWN LIQUID. FOLLOW UP WITH DR. PICKETT SCHEDULED FOR AUGUST 09. PLEASANT AND COOPERATIVE WITH CARE. VISITED IN AFTERNOON.
--- NOTE | 2020-07-28 04:49 | NUR ---
SHIFT SUMMARY PT HAD AN UNEVENTFUL NIGHT. LIVER BIOPSY YESTERDAY. BIOPSY SITE NOTED TO MID ABD. BILIARY DRAIN REMAINS IN PLACE. INSERTION SITE LOOKS CLEAN W/ NO SIGNS OF INFECTION. PLAN FOR PT TO FOLLOW-UP WITH ONCOLOGY OUTPATIENT. PT HAS COMPLAINED OF HER THROAT HURTING. EXAMINED WITH FLASHLIGHT. NOTHING UNUSUAL NOTED. OTHERWISE, NO ACUTE CHANGES THIS SHIFT. VITAL SIGNS STABLE. WILL CONTINUE TO MONITOR.
[2020-07-28 06:46] LABS: BASOPHILS ABSOLUTE AUTO 0.04 K/mm3 (0.00-0.23); BASOPHILS PERCENT AUTO 0 % (0-2); EOSINOPHILS PERCENT AUTO 9 % (0-6); Hematocrit 30.1 % (33.0-51.0); Hemoglobin 10.2 g/dL (11.5-16.0); Mean Corpuscular HGB 31.5 pg (26.0-34.0); Mean Corpuscular HGB Conc 33.9 g/dL (31.5-36.5); Mean Corpuscular Volume 93 fL (80-100); Mean Platelet Volume 9.5 fL (9.1-12.4); Platelet Count 372 K/mm3 (150-400); RDW Coefficient Variation 14.9 % (11.7-14.2); RDW Standard Deviation 51.3 fL (35.1-46.3); Red Blood Cell Count 3.24 M/mm3 (3.80-5.20); White Blood Cell Count 15.26 K/mm3 (4.00-11.30)
[2020-07-28 06:47] LABS: IMMATURE GRAN ABSOLUTE AUTO 0.19 K/mm3 (0.00-0.10); IMMATURE GRAN PERCENT AUTO 1 % (0-1); LYMPHOCYTES ABSOLUTE AUTO 0.86 K/mm3 (0.84-5.20); LYMPHOCYTES PERCENT AUTO 6 % (21-46); MONOCYTES ABSOLUTE AUTO 0.28 K/mm3 (0.16-1.47); MONOCYTES PERCENT AUTO 2 % (4-13); NEUTROPHILS ABSOLUTE AUTO 12.49 K/mm3 (1.96-9.15); NEUTROPHILS PERCENT AUTO 82 % (41-73)
[2020-07-28 06:58] LABS: Anion Gap 8 mmol/L (6-16); Blood Urea Nitrogen 15 mg/dL (8-24); Bun/Creatinine Ratio 15.6 (12.0-20.0); CO2, Blood 18 mmol/L (21-32); Calcium, Blood 7.9 mg/dL (8.5-10.1); Chloride, Blood 111 mmol/L (98-108); Creatinine, Blood 0.96 mg/dL (0.40-1.00); Glomerular Filtration Rate >60 (60-); Glucose, Blood 86 mg/dL (70-99); Potassium, Blood 4.1 mmol/L (3.5-5.5); Sodium, Blood 137 mmol/L (136-145)
[2020-07-28] MEDS ORDERED: BENADRYL25 MG PO (13:37)
--- NOTE | 2020-07-28 13:58 | NUR ---
PT DISCHARGED @ APPROX 1400 VIA WHEELCHAIR. DISCHARGE PACKET REVIEWED c PT AND WHO WAS AT BEDSIDE. BOTH STATED THEY HAD NO FURTHER QUESTIONS AT THIS TIME. IV WAS REMOVED AND SITE APPEARED WNL. PT LEFT w BILIARY DRAIN, DRAIN WAS PATENT AND DRAINING. NEEDED RX FAXED TO PREFERED PHARMACY. PT STATED SHE HAD ALL OF HER BELONGINGS.
== END 2020-07-28 14:00 | disposition home or self-care (01) | DRG 682 ==
LOC: ER 14:43 → PCU 20:16 → MEDS 07-25 17:04 → ENPENDDIS 07-28 11:32 → MEDS 07-28 14:00
PROVIDERS: Nurse Practitioner Acute Care; Physician Assistant; Student in an Organized Health Care Education/Training Program; ADMIT Family Medicine
PROC: 0FB23ZX Excision of Left Lobe Liver, Percutaneous Approach, Diagnostic (ICD-10-PCS; principal; 2020-07-27)
DX: N17.9 Acute kidney failure, unspecified (principal); R65.11 Systemic inflammatory response syndrome (SIRS) of non-infectious origin with acute organ dysfunction; C78.7 Secondary malignant neoplasm of liver and intrahepatic bile duct; C25.0 Malignant neoplasm of head of pancreas; C77.2 Secondary and unspecified malignant neoplasm of intra-abdominal lymph nodes; E78.5 Hyperlipidemia, unspecified; D63.0 Anemia in neoplastic disease; Z96.641 Presence of right artificial hip joint; I12.9 Hypertensive chronic kidney disease with stage 1 through stage 4 chronic kidney disease, or unspecified chronic kidney disease; E11.22 Type 2 diabetes mellitus with diabetic chronic kidney disease; N18.30 Chronic kidney disease, stage 3 unspecified; D72.829 Elevated white blood cell count, unspecified; G47.33 Obstructive sleep apnea (adult) (pediatric); K21.9 Gastro-esophageal reflux disease without esophagitis; M10.9 Gout, unspecified; R50.81 Fever presenting with conditions classified elsewhere; J45.909 Unspecified asthma, uncomplicated; L27.0 Generalized skin eruption due to drugs and medicaments taken internally; T36.1X5A Adverse effect of cephalosporins and other beta-lactam antibiotics, initial encounter; Z90.49 Acquired absence of other specified parts of digestive tract; Z90.13 Acquired absence of bilateral breasts and nipples; Z87.891 Personal history of nicotine dependence; Z90.710 Acquired absence of both cervix and uterus; Z98.890 Other specified postprocedural states; Z98.42 Cataract extraction status, left eye; Z79.899 Other long term (current) drug therapy; Z85.3 Personal history of malignant neoplasm of breast; Z90.721 Acquired absence of ovaries, unilateral; Z88.1 Allergy status to other antibiotic agents
CPT/HCPCS: 36415; 47000; 70470; 71260; 77012; 80048; 80053; 80069; 81001; 83605; 83690; 85025; 86301; 87040; 87081; 87086; 87430; 88307; 88341; 88342; 96374; 96375; 99284-25; A9270; J0696; J1200; J1650; J1956; J2405; J7030; Q9967

== ENCOUNTER 2020-08-05 17:31 | Inpatient (IN) | payer MEDICARE, BC ==
[~2020-08-05] VITALS: Ht 162.6 cm; Wt 70.5 kg
[~2020-08-05 17:31] MED LIST changes: +BENADRYL25 MG PO; +OXYC5 PO
[2020-08-05 18:28] LABS: BASOPHILS ABSOLUTE AUTO 0.19 K/mm3 (0.00-0.23); BASOPHILS PERCENT AUTO 1 % (0-2); EOSINOPHILS ABSOLUTE AUTO 7.14 K/mm3 (0.00-0.68); EOSINOPHILS PERCENT AUTO 23 % (0-6); Hemoglobin 12.4 g/dL (11.5-16.0); IMMATURE GRAN ABSOLUTE AUTO 0.49 K/mm3 (0.00-0.10); IMMATURE GRAN PERCENT AUTO 2 % (0-1); LYMPHOCYTES ABSOLUTE AUTO 2.71 K/mm3 (0.84-5.20); LYMPHOCYTES PERCENT AUTO 9 % (21-46); MONOCYTES ABSOLUTE AUTO 1.92 K/mm3 (0.16-1.47); MONOCYTES PERCENT AUTO 6 % (4-13); Mean Corpuscular HGB 31.6 pg (26.0-34.0); Mean Corpuscular HGB Conc 34.4 g/dL (31.5-36.5); Mean Corpuscular Volume 92 fL (80-100); Mean Platelet Volume 8.9 fL (9.1-12.4); NEUTROPHILS ABSOLUTE AUTO 18.98 K/mm3 (1.96-9.15); NEUTROPHILS PERCENT AUTO 60 % (41-73); Platelet Count 474 K/mm3 (150-400); RDW Coefficient Variation 14.9 % (11.7-14.2); RDW Standard Deviation 50.4 fL (35.1-46.3); Red Blood Cell Count 3.93 M/mm3 (3.80-5.20); White Blood Cell Count 31.43 K/mm3 (4.00-11.30)
[2020-08-05 18:43] LABS: International Normalized Ratio 1.53; Prothrombin Time Results 16.1 Sec (9.7-11.5)
[2020-08-05 18:48] LABS: Alanine Aminotransfer (ALT/SGP 20 U/L (12-78); Albumin, Blood 2.6 g/dL (3.4-5.0); Albumin/Globulin Ratio 0.5 (0.8-1.8); Alk Phos 263 U/L (50-136); Anion Gap 11 mmol/L (6-16); Aspartate Aminotrans (AST/SGOT 14 U/L (12-37); Blood Urea Nitrogen 37 mg/dL (8-24); Bun/Creatinine Ratio 25.3 (12.0-20.0); CO2, Blood 15 mmol/L (21-32); Chloride, Blood 101 mmol/L (98-108); Creatinine, Blood 1.46 mg/dL (0.40-1.00); Globulin, Blood 5.1 g/dL (2.2-4.0); Glomerular Filtration Rate 38 (60-); Glucose, Blood 123 mg/dL (70-99); Potassium, Blood 4.3 mmol/L (3.5-5.5); Sodium, Blood 127 mmol/L (136-145); Total Protein, Blood 7.7 g/dL (6.4-8.2); Troponin I <0.015 ng/mL (0.000-0.040)
[2020-08-05 21:34] LABS: Source, Urine Clean Catch
[2020-08-05 21:37] LABS: Bilirubin, Urine Neg (Neg); Blood, Urine 1+ (Neg); Glucose Qualitative, Urine Neg (Neg); Ketones, Urine Neg (Neg); Leukocyte Esterase, Urine 1+ (Neg); Nitrite, Urine Neg (Neg); Protein, Urine 2+ (Neg); Specific Gravity, Urine 1.015 (1.003-1.022); Urobilinogen, Urine NORM (Normal)
[2020-08-05 22:25] LABS: Appearance, Urine Clear (Clear); Bacteria Few /hpf; Color, Urine Yellow (P-Yellow); Red Blood Cells, Urine 0-2 /hpf (0-2); Squamous Epithelial Cells Few /hpf (Few)
[2020-08-06 04:15] LABS: Hematocrit 39.9 % (33.0-51.0); Hemoglobin 13.2 g/dL (11.5-16.0); Mean Corpuscular HGB 30.6 pg (26.0-34.0); Mean Corpuscular HGB Conc 33.1 g/dL (31.5-36.5); Mean Corpuscular Volume 93 fL (80-100); Platelet Count 458 K/mm3 (150-400); RDW Coefficient Variation 15.1 % (11.7-14.2); RDW Standard Deviation 51.7 fL (35.1-46.3); Red Blood Cell Count 4.31 M/mm3 (3.80-5.20); White Blood Cell Count 18.22 K/mm3 (4.00-11.30)
[2020-08-06 04:37] LABS: Albumin, Blood 2.1 g/dL (3.4-5.0); Albumin/Globulin Ratio 0.5 (0.8-1.8); Bilirubin, Total 1.3 mg/dL (0.1-1.0); Bun/Creatinine Ratio 20.8 (12.0-20.0); Calcium, Blood 7.2 mg/dL (8.5-10.1); Creatinine, Blood 1.78 mg/dL (0.40-1.00); Globulin, Blood 4.4 g/dL (2.2-4.0); Potassium, Blood 3.6 mmol/L (3.5-5.5); Total Protein, Blood 6.5 g/dL (6.4-8.2)
[2020-08-06 05:30] LABS: BAND PERCENT MAN 31 % (0-8); BASOPHILS PERCENT MAN 0 % (0-2); EOSINOPHILS ABSOLUTE MAN 1.82 K/mm3 (0.00-0.68); EOSINOPHILS PERCENT MAN 10 % (0-6); LYMPHOCYTES ABSOLUTE MAN 0.91 K/mm3 (0.84-5.20); LYMPHOCYTES PERCENT MAN 5 % (21-46); METAMYELOCYTE ABSOLUTE MAN 0.18 K/mm3 (0.00-0.00); METAMYELOCYTE PERCENT MAN 1 % (0-0); MONOCYTES ABSOLUTE MAN 0.36 K/mm3 (0.16-1.47); MONOCYTES PERCENT MAN 2 % (4-13); MYELOCYTE ABSOLUTE MAN 0.36 K/mm3 (0.00-0.00); MYELOCYTE PERCENT MAN 2 % (0-0); NEUTROPHILS ABSOLUTE MAN 14.57 K/mm3 (1.96-9.15); SEG NEUTROPHILS PERCENT MAN 49 % (41-73); TOTAL CELLS COUNTED 100
--- NOTE | 2020-08-06 06:01 | NUR ---
ADMIT NOTE/SHIFT SUMMARY PT ARRIVED TO PCU FROM ED VIA ED STRETCHER AT APPROX 0015. PT WAS SLID BY 4 STAFF FROM ED STRETCHER TO PCU BED. PT LETHARGIC, ANSWERS QUESTIONS BUT THEN CLOSES EYES. SP02>90% ON RA. TELEMTRY READS SINUS TACH, HR 100'S. PT MOANING C/O OF LUQ PAIN. MEDICATED W/ DILAUDID PER EMAR X2 THIS SHIFT. PT HAS BILIARY DRAIN DRAINING DARK YELLOW FLUID. PT REPOSITIONS SELF, EXTRA PILLOWS GIVEN FOR COMFORT. D5 INFUSING PER EMAR. ABX INFUSED PER EMAR. PT SLEPT MOST OF NIGHT. CALL LIGHT IN REACH. WILL GIVE REPORT TO ONCOMING NURSE.
--- NOTE | 2020-08-06 15:25 | NUR ---
THIS RN CALLED DR. LOPEZ AT 0803 ABOUT PT'S VERBAL REQUEST TO HAVE [facility] RX RESTARTED; TELEPHONE ORDER PROVIDED; TRANSFER ORDERS ENTERED; REPORT GIVEN VIA PHONE TO ERICKSON SHINE AT 1419; PT'S VISITOR Seth AT THE BEDSIDE; PT TRANSFERRED TO MED SURG ROOM 308 VIA BED WITH TELEMETRY MONITORING, NO OXYGEN, AND NO IV INFUSIONS, ACCOMPANIED BY RN AND TECH, PERSONAL EFFECTS TRANSFERRED SIMULTANEOUSLY; PT AND VISITOR DENY ADDITIONAL CONCERNS AT THIS TIME.
--- NOTE | 2020-08-06 17:01 | NUR ---
PT ARRIVED TO THE UNIT THIS AFTERNOON. SHE C/O, CHEST PAIN AFTER TRANSFER TO THE BED. DR. LOPEZ NOTIFIED AND CAME TO THE ROOM AND SPOKE WITH FAMILY. EKG PREFORMED. PT IS NO RESTING. NO C/O PAIN AT THIS TIME.
--- NOTE | 2020-08-06 18:17 | NUR ---
Met with pt and her relative (I believe it's her son) She reports her pain is better controlled with the new pain regimen of dilaudid. Pt requested " with [facility]" paperwork, will print for her to review as requested. She states she has an appt with Dr. Alvarenga in the morning, and she states she will decide after speaking to Dr. Alvarenga what is the most appropriate path for her. Will remain available for supportive visits.
[2020-08-06] MEDS ORDERED: LISINOPRIL-HCT1 EAC1 PO ×2 (22:33)
[2020-08-06] MEDS ORDERED: OMEP20ER PO ×2 (22:34)
[2020-08-06] MEDS ORDERED: SIMV80 PO ×2 (22:34)
[2020-08-06] MEDS ORDERED: MEGESTROL400 MG/11 PO ×2 (22:36)
[2020-08-06] MEDS ORDERED: FAMO20 PO ×2 (22:37)
--- NOTE | 2020-08-07 05:52 | NUR ---
PT IS A/O, PLEASANT, MEDICATED PER EMAR FOR PAIN RELATIVE TO CANCER. ABD PANCREATIC DRAIN DRAINING YELLOW BROWN FLUID, SPECIMEN SENT TO LAB THIS SHIFT. 1-ASSIST TO BSC.
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
--- NOTE | 2020-08-07 16:54 | NUR ---
SHIFT SUMMARY PT A/O X4 AND PLE[address]ANT[address] DR. PICKETT CONSULTED TODAY AND THE PATIENT TO POSSIBLY START CHEMO TOMORROW. PALLIATIVE CARE SPOKE WITH THE PATIENT AND HER TODAY. PT STARTED ON A REGULAR DIET AND TOLERATING IT WELL. DRAIN IS DRAINING BILE. VSS. RESTING IN BED WITH HER CALL LIGHT IN REACH.
--- NOTE | 2020-08-08 05:50 | NUR ---
PT IS A/O, PLAN TO START CHEMO TODAY FOR PANCREATIC CANCER. STANDBY ASSIST TO BSC, ABD DRAIN. SCHEDULED PAIN MEDICATION GIVEN PER EMAR.
[2020-08-08 07:20] LABS: BASOPHILS ABSOLUTE AUTO 0.09 K/mm3 (0.00-0.23); BASOPHILS PERCENT AUTO 1 % (0-2); EOSINOPHILS ABSOLUTE AUTO 2.27 K/mm3 (0.00-0.68); EOSINOPHILS PERCENT AUTO 12 % (0-6); Hematocrit 30.4 % (33.0-51.0); Hemoglobin 10.1 g/dL (11.5-16.0); IMMATURE GRAN ABSOLUTE AUTO 0.33 K/mm3 (0.00-0.10); IMMATURE GRAN PERCENT AUTO 2 % (0-1); LYMPHOCYTES ABSOLUTE AUTO 1.09 K/mm3 (0.84-5.20); LYMPHOCYTES PERCENT AUTO 6 % (21-46); MONOCYTES ABSOLUTE AUTO 0.94 K/mm3 (0.16-1.47); MONOCYTES PERCENT AUTO 5 % (4-13); Mean Corpuscular HGB 30.5 pg (26.0-34.0); Mean Corpuscular HGB Conc 33.2 g/dL (31.5-36.5); Mean Corpuscular Volume 92 fL (80-100); NEUTROPHILS ABSOLUTE AUTO 14.81 K/mm3 (1.96-9.15); NEUTROPHILS PERCENT AUTO 76 % (41-73); NRBC ABSOLUTE 0.04 K/mm3 (0.00-0.02); NRBC Auto 0.2 /100 WBC (0.0-0.2); RDW Coefficient Variation 15.2 % (11.7-14.2); RDW Standard Deviation 51.6 fL (35.1-46.3); Red Blood Cell Count 3.31 M/mm3 (3.80-5.20); White Blood Cell Count 19.53 K/mm3 (4.00-11.30)
[2020-08-08 07:22] LABS: Mean Platelet Volume 9.6 fL (9.1-12.4); Platelet Count 288 K/mm3 (150-400)
[2020-08-08 07:41] LABS: Albumin/Globulin Ratio 0.6 (0.8-1.8); Bilirubin, Total 0.8 mg/dL (0.1-1.0); Bun/Creatinine Ratio 36.8 (12.0-20.0); Calcium, Blood 7.1 mg/dL (8.5-10.1); Creatinine, Blood 1.14 mg/dL (0.40-1.00); Globulin, Blood 3.5 g/dL (2.2-4.0); Potassium, Blood 5.2 mmol/L (3.5-5.5); Total Protein, Blood 5.5 g/dL (6.4-8.2)
--- NOTE | 2020-08-08 12:51 | NUR ---
STARTED CHEMO (ABRAXANE) AFTER PATIENT EDUCATED ON SIGNS AND SYMPTOMS OF REACTION AND TO CALL [facility] IF ANY SYMPTOMS. PATIENT EDUCATION PROVIDED. CHEMO DOSE, RATE, MEDICATION, PATIENT VERIFIED WITH GINGER RN. PATIENT VOICES NO COMPLAINTS OR CONCERNS AT THIS TIME. VSS.
--- NOTE | 2020-08-08 13:17 | NUR ---
ABRAXANE COMPLETED WITH NO SIGNS/SYMPTOMS OF REACTION. PATIENT STATES SHE FEELS GOOD AND DENIES ANY CONCERNS. VSS. GEMZAR STARTED PER RX AFTER PATIENT EDUCATION REGADING SIGNS/SYMPTOMS OF REACTION AND WRITTEN EDUCATION PROVIDED. VSS. GEMZAR DOSE, RATE, ROUTE, PATIENT, VERIFIED WITH MARIAM ALMENDAREZ.
--- NOTE | 2020-08-08 13:54 | NUR ---
AYAAN COMPLETED WITH NO SIGNS/SYMPTOMS OF REACTION. PATEINT DENIES ANY CONCERNS OR COMPLAINTS. VSS THROUGHOUT INFUSION. PATIENT EDUCATED TO CALL IF ANY CHANGES OR CONCERNS.
--- NOTE | 2020-08-08 14:44 | NUR ---
pt starting treatment today we reviewed symtoms and what to report. Reviewed fall prcautions and safety. we reviewed strategies on maintaining nurtrition. She ahs been struggling with food. Strongly encouraged her to report any symtoms to her doctor and family. will follow up with lawn care professional and the [facility] [facility] for help with her living situation.
[2020-08-08] MEDS ORDERED: HYDMOR2 PO ×2 (15:07)
[2020-08-08] MEDS ORDERED: ONDA4 SL ×2 (15:08)
[2020-08-08] MEDS ORDERED: DOCUZEN 8.6-501 EACH PO ×2 (15:09)
--- NOTE | 2020-08-08 16:46 | NUR ---
PT DISCHARGED TODAY AT 1545. PT COMPLETED CHEMO TREATMENT TODAY AND HAD DR SANDOVAL COME IT AFTER CONSULTED BY DR LOPEZ. PT AOX4 AND COOPERATIVE OF CARE. PT DID WELL TODAY AND DENIED ANY NAUSEA PRIOR TO DISCHARE. ALL PAPERWORK REVIEWED AND SIGNED WITH EDUCATIONAL MATERIAL. PT ESOCORTED OUT VIA WHEELCHAIR WITH ALL PERSONAL BELONGINGS. NO DITRESSS NOTED.
== END 2020-08-08 15:43 | disposition home or self-care (01) | DRG 840 ==
LOC: ER 17:31 → PCU 22:49 → MEDS 22:49 → PCU 08-06 00:16 → MEDS 08-06 15:26
PROVIDERS: Emergency Medicine; Internal Medicine Hematology & Oncology; ADMIT Internal Medicine
DX: C77.2 Secondary and unspecified malignant neoplasm of intra-abdominal lymph nodes (principal); R65.11 Systemic inflammatory response syndrome (SIRS) of non-infectious origin with acute organ dysfunction; E43 Unspecified severe protein-calorie malnutrition; C78.7 Secondary malignant neoplasm of liver and intrahepatic bile duct; C25.0 Malignant neoplasm of head of pancreas; N17.9 Acute kidney failure, unspecified; E87.1 Hypo-osmolality and hyponatremia; E87.2 Acidosis; Z66 Do not resuscitate; I12.9 Hypertensive chronic kidney disease with stage 1 through stage 4 chronic kidney disease, or unspecified chronic kidney disease; N18.2 Chronic kidney disease, stage 2 (mild); L29.8 Other pruritus; E86.0 Dehydration; E55.9 Vitamin D deficiency, unspecified; E78.5 Hyperlipidemia, unspecified; J45.909 Unspecified asthma, uncomplicated; M10.9 Gout, unspecified; Z96.649 Presence of unspecified artificial hip joint; Z68.25 Body mass index [BMI] 25.0-25.9, adult; Z85.3 Personal history of malignant neoplasm of breast; Z87.891 Personal history of nicotine dependence; Z90.13 Acquired absence of bilateral breasts and nipples; Z90.49 Acquired absence of other specified parts of digestive tract; Z90.710 Acquired absence of both cervix and uterus; Z98.890 Other specified postprocedural states; Z88.1 Allergy status to other antibiotic agents; Z79.899 Other long term (current) drug therapy
CPT/HCPCS: 36415; 71045; 74177; 80053; 81001; 83605; 83690; 84145; 84484; 85025; 85610; 86140; 86301; 87040; 87070; 87075; 87086; 87205; 93005; 93010; 96365-59; 96375; 96376; 99285-25; A9270; C9113; J1100; J1170; J1200; J1650; J2405; J2543; J2930; J7030; J7042; J7050; J7120; J9201; J9264; Q9967

== ENCOUNTER → 2020-08-21 | Outpatient (CLI) | payer MEDICARE, BC ==
[~2020-08-21] MED LIST changes: +AKWA Tears15 ML BOTHEYES; +AMOCLA875 PO; +ASPI81CH PO; +Acetaminophen650 M1 PO; +CARV3.125 PO; +DOCUZEN 8.6-501 EACH PO; +FAMO20 PO; +FUROSEMIDE20 MG PO; +HYDMOR2 PO; +LISINOPRIL-HCT1 EAC1 PO; +Lisinopril2.5 MG PO; +MIRALAX119 GM PO; +MONDOXYNE NL100 MG PO; +ONDA4 SL; +POTCHL20ER PO; +VALTREX PO; +VISBIOME 112.51 EACH PO
[2020-08-21 09:41] LABS: Hematocrit 33.6 % (33.0-51.0); Hemoglobin 11.1 g/dL (11.5-16.0); Mean Corpuscular HGB 30.4 pg (26.0-34.0); Mean Corpuscular Volume 92 fL (80-100); Mean Platelet Volume 10.5 fL (9.1-12.4); Platelet Count 291 K/mm3 (150-400); RDW Coefficient Variation 14.8 % (11.7-14.2); RDW Standard Deviation 49.5 fL (35.1-46.3); Red Blood Cell Count 3.65 M/mm3 (3.80-5.20); White Blood Cell Count 3.09 K/mm3 (4.00-11.30)
[2020-08-21 10:36] LABS: Albumin, Blood 2.7 g/dL (3.4-5.0); Albumin/Globulin Ratio 0.5 (0.8-1.8); Bilirubin, Total 1.2 mg/dL (0.1-1.0); Creatinine, Blood 1.44 mg/dL (0.40-1.00); Globulin, Blood 5.5 g/dL (2.2-4.0); Potassium, Blood 5.1 mmol/L (3.5-5.5); Total Protein, Blood 8.2 g/dL (6.4-8.2)
[2020-08-21 10:39] LABS: BASOPHILS PERCENT MAN 0 % (0-2); EOSINOPHILS ABSOLUTE MAN 0.55 K/mm3 (0.00-0.68); EOSINOPHILS PERCENT MAN 18 % (0-6); LYMPHOCYTES ABSOLUTE MAN 0.77 K/mm3 (0.84-5.20); LYMPHOCYTES PERCENT MAN 25 % (21-46); MONOCYTES PERCENT MAN 0 % (4-13); NEUTROPHILS ABSOLUTE MAN 1.76 K/mm3 (1.96-9.15); SEG NEUTROPHILS PERCENT MAN 57 % (41-73); TOTAL CELLS COUNTED 100
== END | disposition home or self-care (01) ==
LOC: LAB SHORT 09:14 → LAB 09:14
PROVIDERS: Internal Medicine Hematology & Oncology
DX: C25.9 Malignant neoplasm of pancreas, unspecified (principal)
CPT/HCPCS: 80053; 85025

== ENCOUNTER 2020-08-26 10:19 | Day surgery (SDC) | payer MEDICARE, BC ==
[~2020-08-26 10:19] MED LIST changes: -AKWA Tears15 ML BOTHEYES; -AMOCLA875 PO; -ASPI81CH PO; -Acetaminophen650 M1 PO; -CARV3.125 PO; -FUROSEMIDE20 MG PO; -Lisinopril2.5 MG PO; -MIRALAX119 GM PO; -MONDOXYNE NL100 MG PO; -POTCHL20ER PO; -VALTREX PO; -VISBIOME 112.51 EACH PO
[2020-08-26] MEDS ORDERED: MONDOXYNE NL100 MG PO (10:42)
[2020-08-26] MEDS ORDERED: VALTREX PO (10:43)
== END 2020-08-26 11:44 | disposition home or self-care (01) ==
LOC: ATC 10:19
DX: E86.0 Dehydration (principal); C25.0 Malignant neoplasm of head of pancreas; E78.5 Hyperlipidemia, unspecified; Z85.3 Personal history of malignant neoplasm of breast; Z79.899 Other long term (current) drug therapy; Z88.1 Allergy status to other antibiotic agents
CPT/HCPCS: 96360; J7030

== ENCOUNTER → 2020-09-06 | Outpatient (CLI) | payer MEDICARE, BC ==
[~2020-09-06] MED LIST changes: +AKWA Tears15 ML BOTHEYES; +AMOCLA875 PO; +ASPI81CH PO; +Acetaminophen650 M1 PO; +CARV3.125 PO; +FUROSEMIDE20 MG PO; +Lisinopril2.5 MG PO; +MIRALAX119 GM PO; +MONDOXYNE NL100 MG PO; +POTCHL20ER PO; +VALTREX PO; +VISBIOME 112.51 EACH PO
[2020-09-06 11:34] LABS: BASOPHILS ABSOLUTE AUTO 0.03 K/mm3 (0.00-0.23); BASOPHILS PERCENT AUTO 0 % (0-2); EOSINOPHILS ABSOLUTE AUTO 0.09 K/mm3 (0.00-0.68); EOSINOPHILS PERCENT AUTO 1 % (0-6); Hematocrit 25.2 % (33.0-51.0); Hemoglobin 8.4 g/dL (11.5-16.0); IMMATURE GRAN ABSOLUTE AUTO 0.56 K/mm3 (0.00-0.10); IMMATURE GRAN PERCENT AUTO 6 % (0-1); LYMPHOCYTES ABSOLUTE AUTO 1.74 K/mm3 (0.84-5.20); LYMPHOCYTES PERCENT AUTO 20 % (21-46); MONOCYTES ABSOLUTE AUTO 0.57 K/mm3 (0.16-1.47); MONOCYTES PERCENT AUTO 7 % (4-13); Mean Corpuscular HGB 31.7 pg (26.0-34.0); Mean Corpuscular HGB Conc 33.3 g/dL (31.5-36.5); Mean Corpuscular Volume 95 fL (80-100); Mean Platelet Volume 10.1 fL (9.1-12.4); NEUTROPHILS ABSOLUTE AUTO 5.78 K/mm3 (1.96-9.15); NEUTROPHILS PERCENT AUTO 66 % (41-73); NRBC ABSOLUTE 0.03 K/mm3 (0.00-0.02); NRBC Auto 0.3 /100 WBC (0.0-0.2); Platelet Count 314 K/mm3 (150-400); RDW Coefficient Variation 16.9 % (11.7-14.2); RDW Standard Deviation 54.4 fL (35.1-46.3); Red Blood Cell Count 2.65 M/mm3 (3.80-5.20); White Blood Cell Count 8.77 K/mm3 (4.00-11.30)
[2020-09-06 11:39] LABS: Alanine Aminotransfer (ALT/SGP 31 U/L (12-78); Albumin/Globulin Ratio 0.5 (0.8-1.8); Alk Phos 244 U/L (50-136); Anion Gap 7 mmol/L (6-16); Aspartate Aminotrans (AST/SGOT 25 U/L (12-37); Bilirubin, Total 0.4 mg/dL (0.1-1.0); Blood Urea Nitrogen 11 mg/dL (8-24); Bun/Creatinine Ratio 12.6 (12.0-20.0); CO2, Blood 24 mmol/L (21-32); Calcium, Blood 8.1 mg/dL (8.5-10.1); Chloride, Blood 106 mmol/L (98-108); Creatinine, Blood 0.88 mg/dL (0.40-1.00); Globulin, Blood 3.9 g/dL (2.2-4.0); Glomerular Filtration Rate >60 (60-); Glucose, Blood 106 mg/dL (70-99); Sodium, Blood 137 mmol/L (136-145); Total Protein, Blood 5.9 g/dL (6.4-8.2)
== END | disposition home or self-care (01) ==
LOC: LAB 11:12 → LAB SHORT 11:12
PROVIDERS: Internal Medicine Hematology & Oncology
DX: C25.9 Malignant neoplasm of pancreas, unspecified (principal)
CPT/HCPCS: 80053; 85025

== ENCOUNTER 2020-09-20 00:56 | Day surgery (SDC) | payer MEDICARE, BC ==
[2020-09-19 11:49] LABS: BASOPHILS ABSOLUTE AUTO 0.04 K/mm3 (0.00-0.23); BASOPHILS PERCENT AUTO 0 % (0-2); EOSINOPHILS PERCENT AUTO 4 % (0-6); Hemoglobin 8.4 g/dL (11.5-16.0); IMMATURE GRAN ABSOLUTE AUTO 0.41 K/mm3 (0.00-0.10); IMMATURE GRAN PERCENT AUTO 4 % (0-1); LYMPHOCYTES ABSOLUTE AUTO 2.22 K/mm3 (0.84-5.20); LYMPHOCYTES PERCENT AUTO 21 % (21-46); MONOCYTES ABSOLUTE AUTO 1.14 K/mm3 (0.16-1.47); MONOCYTES PERCENT AUTO 11 % (4-13); Mean Corpuscular HGB Conc 31.1 g/dL (31.5-36.5); Mean Corpuscular Volume 100 fL (80-100); Mean Platelet Volume 9.8 fL (9.1-12.4); NEUTROPHILS ABSOLUTE AUTO 6.31 K/mm3 (1.96-9.15); NEUTROPHILS PERCENT AUTO 60 % (41-73); NRBC ABSOLUTE 0.05 K/mm3 (0.00-0.02); NRBC Auto 0.5 /100 WBC (0.0-0.2); Platelet Count 456 K/mm3 (150-400); RDW Coefficient Variation 21.2 % (11.7-14.2); RDW Standard Deviation 76.4 fL (35.1-46.3); Red Blood Cell Count 2.71 M/mm3 (3.80-5.20); White Blood Cell Count 10.52 K/mm3 (4.00-11.30)
[~2020-09-20 00:56] MED LIST changes: -AKWA Tears15 ML BOTHEYES; -AMOCLA875 PO; -ASPI81CH PO; -Acetaminophen650 M1 PO; -CARV3.125 PO; -FUROSEMIDE20 MG PO; -Lisinopril2.5 MG PO; -MIRALAX119 GM PO; -POTCHL20ER PO; -VISBIOME 112.51 EACH PO
--- NOTE | 2020-09-20 10:22 | NUR ---
FINE INSPIRATORY CRACKLES TO LEFT BASE CLEAR WITH COUGH.
== END 2020-09-20 12:05 | disposition home or self-care (01) ==
LOC: ATC 00:56 → EDSTATUS 08-30 14:05 → LAB FUT 08-30 14:05
PROVIDERS: Internal Medicine Hematology & Oncology
DX: C25.0 Malignant neoplasm of head of pancreas (principal); D50.9 Iron deficiency anemia, unspecified; D70.1 Agranulocytosis secondary to cancer chemotherapy
CPT/HCPCS: 36415; 36430; 85025; 86850; 86900; 86901; 86920; J7050; P9016

== ENCOUNTER 2020-09-26 01:25 | Inpatient (IN) | payer MEDICARE, BC ==
[~2020-09-26] VITALS: Ht 172.7 cm; Wt 71.8 kg
[2020-09-26 01:36] LABS: PCO2 Arterial 29.5 mmHg (35-45); PO2 Arterial 74.9 mmHg (80-100); pH Blood Arterial 7.44 (7.35-7.45)
[2020-09-26 01:47] LABS: BASOPHILS ABSOLUTE AUTO 0.18 K/mm3 (0.00-0.23); BASOPHILS PERCENT AUTO 1 % (0-2); EOSINOPHILS ABSOLUTE AUTO 0.03 K/mm3 (0.00-0.68); EOSINOPHILS PERCENT AUTO 0 % (0-6); Hematocrit 35.6 % (33.0-51.0); Hemoglobin 11.6 g/dL (11.5-16.0); IMMATURE GRAN ABSOLUTE AUTO 1.52 K/mm3 (0.00-0.10); IMMATURE GRAN PERCENT AUTO 5 % (0-1); LYMPHOCYTES ABSOLUTE AUTO 1.78 K/mm3 (0.84-5.20); LYMPHOCYTES PERCENT AUTO 6 % (21-46); MONOCYTES ABSOLUTE AUTO 1.18 K/mm3 (0.16-1.47); MONOCYTES PERCENT AUTO 4 % (4-13); Mean Corpuscular HGB 30.4 pg (26.0-34.0); Mean Corpuscular HGB Conc 32.6 g/dL (31.5-36.5); Mean Corpuscular Volume 93 fL (80-100); Mean Platelet Volume 11.1 fL (9.1-12.4); NEUTROPHILS ABSOLUTE AUTO 23.89 K/mm3 (1.96-9.15); NEUTROPHILS PERCENT AUTO 84 % (41-73); NRBC ABSOLUTE 0.05 K/mm3 (0.00-0.02); NRBC Auto 0.2 /100 WBC (0.0-0.2); Platelet Count 154 K/mm3 (150-400); RDW Coefficient Variation 18.1 % (11.7-14.2); RDW Standard Deviation 58.9 fL (35.1-46.3); Red Blood Cell Count 3.82 M/mm3 (3.80-5.20); White Blood Cell Count 28.58 K/mm3 (4.00-11.30)
[2020-09-26 01:59] LABS: Source, Urine Catheter
[2020-09-26 02:01] LABS: Appearance, Urine Clear (Clear); Blood, Urine 5+ (Neg); Color, Urine Amber (P-Yellow); Glucose Qualitative, Urine Neg (Neg); Ketones, Urine 1+ (Neg); Leukocyte Esterase, Urine 1+ (Neg); Nitrite, Urine Neg (Neg); Protein, Urine 3+ (Neg); Specific Gravity, Urine 1.015 (1.003-1.022); Urobilinogen, Urine 3+ (Normal)
[2020-09-26 02:04] LABS: BAND PERCENT MAN 13 % (0-8); BASOPHILS PERCENT MAN 0 % (0-2); EOSINOPHILS PERCENT MAN 0 % (0-6); LYMPHOCYTES ABSOLUTE MAN 1.71 K/mm3 (0.84-5.20); LYMPHOCYTES PERCENT MAN 6 % (21-46); METAMYELOCYTE ABSOLUTE MAN 0.85 K/mm3 (0.00-0.00); METAMYELOCYTE PERCENT MAN 3 % (0-0); MONOCYTES ABSOLUTE MAN 0.57 K/mm3 (0.16-1.47); MONOCYTES PERCENT MAN 2 % (4-13); MYELOCYTE ABSOLUTE MAN 0.28 K/mm3 (0.00-0.00); MYELOCYTE PERCENT MAN 1 % (0-0); NEUTROPHILS ABSOLUTE MAN 25.15 K/mm3 (1.96-9.15); SEG NEUTROPHILS PERCENT MAN 75 % (41-73); TOTAL CELLS COUNTED 100
[2020-09-26 02:05] LABS: Alanine Aminotransfer (ALT/SGP 19 U/L (12-78); Albumin, Blood 1.7 g/dL (3.4-5.0); Albumin/Globulin Ratio 0.4 (0.8-1.8); Alk Phos 270 U/L (50-136); Anion Gap 11 mmol/L (6-16); Aspartate Aminotrans (AST/SGOT 24 U/L (12-37); Bilirubin, Total 1.2 mg/dL (0.1-1.0); Blood Urea Nitrogen 19 mg/dL (8-24); Bun/Creatinine Ratio 21.4 (12.0-20.0); CO2, Blood 23 mmol/L (21-32); Calcium, Blood 8.2 mg/dL (8.5-10.1); Chloride, Blood 99 mmol/L (98-108); Creatinine, Blood 0.89 mg/dL (0.40-1.00); Globulin, Blood 4.7 g/dL (2.2-4.0); Glomerular Filtration Rate >60 (60-); Glucose, Blood 178 mg/dL (70-99); Potassium, Blood 3.2 mmol/L (3.5-5.5); Sodium, Blood 133 mmol/L (136-145); Total Protein, Blood 6.4 g/dL (6.4-8.2)
[2020-09-26 02:07] LABS: Bilirubin, Urine 2+ (Neg)
[2020-09-26 02:08] LABS: Bacteria Mod /hpf; Hyaline Casts 0-2 /lpf (0-2); Squamous Epithelial Cells Few /hpf (Few); Yeast/Fungi Urine Few /hpf
[2020-09-26 02:58] LABS: SARS-Cov-2 (COVID-19) PCR, MMC NEGATIVE (NEGATIVE)
[2020-09-26 05:21] LABS: BASOPHILS ABSOLUTE AUTO 0.18 K/mm3 (0.00-0.23); BASOPHILS PERCENT AUTO 1 % (0-2); Hematocrit 31.6 % (33.0-51.0); Hemoglobin 10.4 g/dL (11.5-16.0); LYMPHOCYTES ABSOLUTE AUTO 1.05 K/mm3 (0.84-5.20); LYMPHOCYTES PERCENT AUTO 4 % (21-46); MONOCYTES ABSOLUTE AUTO 1.12 K/mm3 (0.16-1.47); MONOCYTES PERCENT AUTO 4 % (4-13); Mean Corpuscular HGB 30.8 pg (26.0-34.0); Mean Corpuscular HGB Conc 32.9 g/dL (31.5-36.5); Mean Corpuscular Volume 94 fL (80-100); Mean Platelet Volume 11.1 fL (9.1-12.4); NRBC ABSOLUTE 0.02 K/mm3 (0.00-0.02); NRBC Auto 0.1 /100 WBC (0.0-0.2); Platelet Count 111 K/mm3 (150-400); RDW Standard Deviation 59.9 fL (35.1-46.3); Red Blood Cell Count 3.38 M/mm3 (3.80-5.20); White Blood Cell Count 29.08 K/mm3 (4.00-11.30)
[2020-09-26 05:22] LABS: EOSINOPHILS ABSOLUTE AUTO 0.01 K/mm3 (0.00-0.68); EOSINOPHILS PERCENT AUTO 0 % (0-6); IMMATURE GRAN PERCENT AUTO 5 % (0-1); NEUTROPHILS ABSOLUTE AUTO 25.42 K/mm3 (1.96-9.15); NEUTROPHILS PERCENT AUTO 87 % (41-73)
[2020-09-26 05:41] LABS: BAND PERCENT MAN 12 % (0-8); BASOPHILS PERCENT MAN 0 % (0-2); EOSINOPHILS PERCENT MAN 0 % (0-6); LYMPHOCYTES ABSOLUTE MAN 1.74 K/mm3 (0.84-5.20); LYMPHOCYTES PERCENT MAN 6 % (21-46); METAMYELOCYTE ABSOLUTE MAN 0.29 K/mm3 (0.00-0.00); METAMYELOCYTE PERCENT MAN 1 % (0-0); MONOCYTES ABSOLUTE MAN 0.29 K/mm3 (0.16-1.47); MONOCYTES PERCENT MAN 1 % (4-13); NEUTROPHILS ABSOLUTE MAN 26.75 K/mm3 (1.96-9.15); SEG NEUTROPHILS PERCENT MAN 80 % (41-73); TOTAL CELLS COUNTED 100
[2020-09-26 05:47] LABS: Albumin, Blood 1.5 g/dL (3.4-5.0); Albumin/Globulin Ratio 0.4 (0.8-1.8); Bilirubin, Total 1.3 mg/dL (0.1-1.0); Calcium, Blood 7.8 mg/dL (8.5-10.1); Creatinine, Blood 0.95 mg/dL (0.40-1.00); Globulin, Blood 4.1 g/dL (2.2-4.0); Potassium, Blood 3.2 mmol/L (3.5-5.5); Total Protein, Blood 5.6 g/dL (6.4-8.2)
--- NOTE | 2020-09-26 08:40 | NUR ---
INITIAL ASSESSMENT PATIENT ARRIVED FROM ER AT 0748. PATIENT LETHARGIC, FLAT AFFECT, COOPERATIVE. PATIENT ALERT AND ORIENTED X 4. TEMP 95 TO 96 DEGREES FAHRENHEIT. ARIEL HUGGER IN PLACE. PATIENT DIAPHORETIC AND STATES SHE FEELS HOT. PATIENT SATTING 90% AND GREATER ON BIPAP 10/5, 40% FIO2. PATIENT SOB WITH EXERTION. LLL COARSE AND DIMINISHED TO AUSCULTATION. PATIENT IN SR TO ST, HR 90S TO LOW 100S. SBP 80S TO LOW 100S. PULSES FAINT TO PALPATION. 2+ EDEMA NOTED TO BLES. GI APPEARS WNL. TEMP PROBE MORALES IN PLACE DRAINING DARK TEA COLORED URINE. SKIN PALE. SCATTERED BRUISING NOTED. SKIN TEAR TO TOP OF R HAND. 2 ULCERS ON COCCYX. DRESSINGS APPLIED TO ALL WOUNDS AND PICTURES TAKEN. BILAT MASTECTOMY NOTED; PATIENT STATES WAS 5.5 YEARS AGO. LEVOPHED INFUSING AT 5 MCG/ MINUTE TO KEEPS MAPS 65 AND GREATER. PATIENT RECEIVING 40 MEQ KCL FOR POTASSIUM OF 3.2 THIS AM. BED LOW, CALL LIGHT IN REACH. PATIENT ORIENTED TO UNIT, ROOM, AND CALL SYSTEM. WILL CONTINUE TO MONITOR FREQUENTLY THROUGHOUT SHIFT.
--- NOTE | 2020-09-26 12:00 | NUR ---
PATIENT AFEBRILE. HR 90S TO 100. SBP 90S TO LOW 100S. LEVOPHED AT 3 MCG/ MINUTE. PATIENT SATTING 90% AND GREATER ON 4 L NC. PATIENT COUGHING UP SMALL AMOUNT OF FROTHY, WHITE/ PINK SPUTUM. NO OTHER ACUTE CHANGES TO NOTE ON AT THIS TIME. WILL CONTINUE TO MONITOR.
--- NOTE | 2020-09-26 13:24 | NUR ---
DR. TELLO CALLED AND INFORMED THAT PATIENT HAS AUDIBLE CRACKLES. INFORMED THAT PATIENT IS ON LOW DOSE LEVOPHED AT THIS TIME AND THAT PATIENT'S BNP ELEVATED UPON ADMIT. ORDER FOR DAILY LASIX OBTAINED.
--- NOTE | 2020-09-26 16:00 | NUR ---
PATIENT AFEBRILE. NO CHANGE IN RESP STATUS. HR 80S TO 90S. SBP 80S TO 90S. LEVOPHED AT 3 MCG/ MINUTE. NO OTHER ACUTE CHANGE TO NOTE ON AT THIS TIME. WILL CONTINUE TO MONITOR.
--- NOTE | 2020-09-26 16:47 | NUR ---
PATIENT AND ASKING IF DR. PICKETT WILL SEE PATIENT IN HOSPITAL. STATE THAT PATIENT HAS CT ON THE AND IF THEY COULD GET IT DONE SOONER THEN IT MIGHT GUIDE FUTURE CARE. DR. TELLO CALLED AND INFORMED. STATED NO NEED TO CONSULT PIYUSH AT THIS TIME BUT DID ORDER FOR CT SCAN.
--- NOTE | 2020-09-26 19:00 | NUR ---
ASSUMED CARE ASSUMED CARE OF PATIENT. RESTING QUIETLY WHEN UNDISTURBED. ROUSES EASILY TO VERBAL STIMULI. FLAT AFFECT NOTED AND PT IS IRRITABLE AT TIME. ORIENTED AND COOPERATIVE WITH CARE. MONITOR SHOWS NSR, RATE 90s. LEVOPHED INFUSING AT 5MCG/MIN TO MAINTAIN MAP >65. MANJINDER PICC PATENT, DRSG C/D/I. MORALES PATENT AND DRAINING YELLOW URINE. C/O GENERAL PAIN, BUT DENIES NEED FOR PAIN MED AT THIS TIME. AFEBRILE. COLOR PALE, SKIN IS CLAMMY. SEE SHIFT ASSESSMENT FOR FULL ASSESSMENT.
--- NOTE | 2020-09-26 19:14 | NUR ---
SHIFT SUMMARY PATIENT REMAINED ALERT AND ORIENTED X 4, LETHARGIC. FLAT AFFECT. PATIENT REMAINED AFEBRILE. ARIEL HUGGER OFF BY SECOND HALF OF SHIFT. PATIENT REMAINED WEAK BUT ABLE TO REPOSITION SELF IN BED. 2 STAFF TO BOOST. PATIENT REMAINED SATTING 90% AND GREATER ON BIPAP 10/5 AT 40% FIO2 OR ON 4 L NC. PATIENT CONTINUED TO COUGH UP SMALL AMOUNT OF WHITE/ PINK, FROTHY SPUTUM. PATIENT REMAINED DYSPNEIC WITH EXERTION. PATIENT SR TO ST, HR 70S TO LOW 100S. SBP 80S TO LOW 100S. LEVOPHED RANGED FROM 3 TO 5 MCG/ MINUTE. PITTING EDEMA REMAINED TO BLES. NO BM THIS SHIFT. PATIENT INCREASED TO REGULAR DIET. PATIENT TOLERATING FOOD WELL AND DOES HAVE MODERATE APPETITE. LASIX GIVEN OT THIS SHIFT AND STARTED DAILY. 625 MLS OF DARK TEA COLORED URINE OUT FROM MORALES. NO CHANGE TO SKIN. PATIENT RECIEVED 40 MEQ KCL FOR AM POTASSIUM OF 3.2. PATIENT RECEIVED COMPLETE BED BATH. CAME TO VISIT. SON DID WELL AND PATIENT STATED TO REFUSE HIM ENTRY. PATIENT APPEARS COMFORTABLE AT THIS TIME. BED LOW, CALL LIGHT IN REACH. REPORT HAS BEEN GIVEN TO ASSUMING EYEGLASS CUTTER NURSE.
[2020-09-27 03:55] LABS: BASOPHILS ABSOLUTE AUTO 0.16 K/mm3 (0.00-0.23); BASOPHILS PERCENT AUTO 1 % (0-2); Hematocrit 31.1 % (33.0-51.0); Hemoglobin 10.2 g/dL (11.5-16.0); LYMPHOCYTES ABSOLUTE AUTO 3.13 K/mm3 (0.84-5.20); LYMPHOCYTES PERCENT AUTO 12 % (21-46); MONOCYTES ABSOLUTE AUTO 1.55 K/mm3 (0.16-1.47); MONOCYTES PERCENT AUTO 6 % (4-13); Mean Corpuscular HGB 30.5 pg (26.0-34.0); Mean Corpuscular HGB Conc 32.8 g/dL (31.5-36.5); Mean Corpuscular Volume 93 fL (80-100); NRBC ABSOLUTE 0.04 K/mm3 (0.00-0.02); NRBC Auto 0.2 /100 WBC (0.0-0.2); Platelet Count 61 K/mm3 (150-400); RDW Coefficient Variation 18.2 % (11.7-14.2); Red Blood Cell Count 3.34 M/mm3 (3.80-5.20)
[2020-09-27 03:58] LABS: EOSINOPHILS ABSOLUTE AUTO 0.01 K/mm3 (0.00-0.68); EOSINOPHILS PERCENT AUTO 0 % (0-6); IMMATURE GRAN ABSOLUTE AUTO 1.01 K/mm3 (0.00-0.10); IMMATURE GRAN PERCENT AUTO 4 % (0-1); NEUTROPHILS ABSOLUTE AUTO 20.54 K/mm3 (1.96-9.15); NEUTROPHILS PERCENT AUTO 78 % (41-73)
[2020-09-27 04:13] LABS: Albumin, Blood 1.5 g/dL (3.4-5.0); Albumin/Globulin Ratio 0.4 (0.8-1.8); Bilirubin, Total 1.1 mg/dL (0.1-1.0); Bun/Creatinine Ratio 24.8 (12.0-20.0); Calcium, Blood 8.1 mg/dL (8.5-10.1); Creatinine, Blood 0.97 mg/dL (0.40-1.00); Globulin, Blood 4.2 g/dL (2.2-4.0); Potassium, Blood 3.7 mmol/L (3.5-5.5); Total Protein, Blood 5.7 g/dL (6.4-8.2)
--- NOTE | 2020-09-27 06:07 | NUR ---
SHIFT SUMMARY ASSUMED CARE OF PATIENT AT 0430 FROM GAL ALMENDAREZ. PATIENT ON LEFT SIDE, EYES CLOSED, RESP E/U, NO S/S OF DISTRESS AND STABLE VITAL SIGNS. LEVOPHED AT 2MCG INFUSING AND 4L [address] NC IN [address]ACE WITH SATS ABOVE 90%. AT 0600 PATIENT AWAKE IN BED, DENIED DISCOMFORTS. STATED SHE FELT SOMEWHAT BETTER. DISCUSSED PATIENT'S CURRENT VITALS WITH HER. NO CHANGES TO LEVOPHED, CONTINUES AT 2MCG WITH [address] LABS REVIEWED. WILL CONTINUE TO MONITOR AND REPORT TO ONCOMING RN.
--- NOTE | 2020-09-27 10:00 | NUR ---
AM NOTE... ASSUMED CARE OF PT AT 0700, PT IS A&Ox4, PT WAS ADMITTED FOR CHF EXAC AND RESPIRATORY FAILURE. PT WAS ON 4L NC WITH O2 SATS >90% BUT THE PT TRIED TO MOVE HERSELF IN THE BED AND BECAME SOB, PT'S O2 SATS DROPPED TO 84%, PT'S NC WAS INCREASED TO 6L BUT HER O2 SATS ONLY CAME UP TO 86%, PT WAS PLACED ON THE BIPAP AT 10/5 AND 40%, THIS BROUGHT THE PT'S O2 SATS UP FROM 86% TO 95%. PT'S L/S VERY COARSE CRACKLES T/O MORE ON THE LEFT THAN THE RIGHT. RR IN THE HIGH 20'S AND LABORED. BT PRESENT AND HYPOACTIVE, ABD HAS MODERATE DISTENTION AND IS TENDER TO PALP. PT'S MORALES IS PATENT AND DRAINING TO GRAVITY. PT WAS MEDICATED FOR PAIN PER EMAR. CALL LIGHT IN REACH WILL CONTINUE TO MONITOR. CALL LIGHT IN REACH WILL CONTINUE TO MONITOR.
--- NOTE | 2020-09-27 10:52 | NUR ---
pt compalins of pain to abdomen and tailbone. She is asking for her to come and visit her. She told doctor fab she would go on a vent for a short time if it would keep her alive. She wants to see her home finished in october and see her move in. Called her with an update and he will be in at 2pm. He wxpressed that it may be time for another plan and wanted dr montaño input. updated hospitalist. pt kps score is 30% offered pt other foods for comfort or pleasure and offered aroma therpy. she is to fatigued and declined.
--- NOTE | 2020-09-27 12:26 | NUR ---
PT UPDATE.... DR. TELLO AT THE BEDSIDE FOR ASSESSMENT, PER THE PT SHE WOULD WANT TO BE INTUBATED SO THE PT'S CODE STATUS WAS CHANGED FROM DNR TO LIMITED. PT WAS ON THE BIPAP FOR APROX 2HRS THEN GIVEN A BREAK, PT WAS ON THE NC AT 5L WITH O2 SATS >90% FOR APROX 2 HOURS, AT APROX 1230 THE PT'S O2 SATS DROPPED TO THE MID 80'S, HER HR INCREASED FROM THE LOW 100S TO THE 120'S, PT'S BP STABLE. PT'S WORK OF BREATHING INCREASED TO GRUNTS, PT WAS PUT BACK ON THE BIPAP AT 10/5 AND 40% HOWEVER HER O2 SATS DID NOT GO ABOVE 87-88% THE PT'S FIO2 WAS TITRATED UP 5% AT A TIME TO 55% WHERE THE PTS O2 SATS WERE STABLE ABOVE 92%. WILL CONTINUE TO MONITOR.
--- NOTE | 2020-09-27 15:32 | NUR ---
PT UPDATE... AT APROX 1400 THE PT'S CALLED THIS RN INTO THE ROOM ASKING IF THE PT COULD TAKE THE BIPAP MASK OFF FOR A BREAK, THIS RN TOOK THE PT'S MASK OFF AND PLACED 6L NC ON THE PT. SOON THE BIPAP MASK WAS TAKEN OFF THE PT HER WORK OF BREATHING INCREASED GREATLY, PT'S BREATHING BECAME LABORED AND SHE STARTED TO GRUNT WITH EVERY BREATH, HER O2 SATS STARTED TO DROP DOWN TO THE 80'S. THE BIPAP WAS PUT BACK ON THE PT, HER O2 SATS STARTED TO INCREASE FROM MID 80'S TO THE LOW 90'S. DR. TELLO WAS CALLED AND UPDATED ON THESE EVENTS, DR. TELLO GAVE THIS RN A VERBAL ORDER TO CONSULT DR. RODRIGUEZ. THIS RN WAS TALKING TO DR. RODRIGUEZ AT 1412 WHEN THE PT WENT INTO VTACH. THE PT SELF CONVERTED BACK TO SINUS TACH APROX 30 SECONDS INTO THE VTACH BUT STARTED TO FLIP IN AND OUT OF VTACH. DURING THIS TIME THE PT WAS ABLE TO SPEAK AND RESPOND TO THIS RN, PT'S EYES WERE OPEN AND SHE WAS MOVING HER EXTREMITIES. AT 1419 THE PT FLIPPED BACK INTO VTACH AND SHE WAS CONVERTED USING THE ZOLL AT 150 J. PT CONVERTED INTO SINUS TACH. AT 1423 EKG WAS THEN OBTAINED, THE PT WAS PALE AND DIAPHORETIC BUT ABLE TO RESPOND APPROPRIATELY TO QUESTIONS. AT 1427 PT WAS GIVEN 40MG IV LASIX, HER CBG WAS 133. AT 1430 THE PT WAS GIVEN 2MG IV MORPHINE. AT 1437 SHE WAS GIVEN 0.5MG IV ATIVAN. DR. TELLO, DR. RODRIGUEZ AND PALLIATIVE CARE RN ASHTYN WERE SPEAKING WITH THE ABOUT THE PT'S CONDITION AND CODE STATUS. PER THE NO INTUBATION OR CPR JUST, SHOCK AND MEDS TO KEEP HER ALIVE UNTIL HER FAMILY COULD BE AT THE BEDSIDE. PT'S BIPAP FIO2 WAS TITRATED UP FROM 55% TO 75% TO KEEP HER O2 SATS >90%. PASTORIAL CARE AND PALLIATIVE CARE AT THE BEDSIDE FOR THE PT AND HER FAMILY. WILL CONTINUE TO MONITOR.
--- NOTE | 2020-09-27 15:37 | NUR ---
Spiritual care visit conducted. Upon responding to a code blue, I comfort Estevan and provide prayer for him and the patient. Estevan is very tearful as doctors and nurses explain what is happening and ask him what aggressive treatments the patient would or would not want. 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 He provides Sacrement of the Sick. I stay with patient and Estevan and conduct a life review and learn of the positive victorina the patient has made on this planet. Patient's friend Josh and Anabella arrive and provide prayer with them as well. I will continue to provide emotional/spiritual support.
--- NOTE | 2020-09-27 18:01 | NUR ---
SHIFT SUMMARY... DR. TELLO AT THE BEDSIDE AGAIN TO SPEAK WITH THE FAMILY ABOUT THE PT'S CURRENT CONDITON AND PROGNOSIS. DR. PICKETT WAS AT THE BEDSIDE WELL TO ASSESS THE PT. PER THE CONVERSATION WITH THE DOCTORS AND THE FAMILY THE PT IS TO BE A DNR/DNI, CURRENT TREATMENT WILL CONTINUE WITH THE ANTIBIOTICS AND PRESSORS IF NEEDED. CURRENTLY THE PT IS ON THE BIPAP AT 10/5 AND 60% WITH O2 SATS AT 96%. PT'S BP STABLE WITH MAPS >65 AND NOT CURRENTLY ON ANY PRESSORS. PRECEDEX IS RUNNING AT 0.1MCG TO HELP WITH ANXIETY AND BIPAP COMPLIANCE. 2MG IV MORPHINE IS ORDERED FOR AIR HUNGER. PT'S IS TO SPEND THE NIGHT TO HELP REDUCE THE PT'S ANXIETY WELL. CALL LIGHT IN REACH WILL CONTINUE TO MONITOR UNTIL REPORT IS GIVEN TO ONCOMING RN.
[2020-09-27 19:31] LABS: Alanine Aminotransfer (ALT/SGP 20 U/L (12-78); Albumin, Blood 1.3 g/dL (3.4-5.0); Albumin/Globulin Ratio 0.3 (0.8-1.8); Alk Phos 173 U/L (50-136); Anion Gap 9 mmol/L (6-16); Aspartate Aminotrans (AST/SGOT 29 U/L (12-37); Blood Urea Nitrogen 24 mg/dL (8-24); Bun/Creatinine Ratio 26.1 (12.0-20.0); CO2, Blood 26 mmol/L (21-32); Chloride, Blood 104 mmol/L (98-108); Creatinine, Blood 0.92 mg/dL (0.40-1.00); Globulin, Blood 4.2 g/dL (2.2-4.0); Glomerular Filtration Rate >60 (60-); Glucose, Blood 117 mg/dL (70-99); Potassium, Blood 2.8 mmol/L (3.5-5.5); Sodium, Blood 139 mmol/L (136-145); Total Protein, Blood 5.5 g/dL (6.4-8.2)
--- NOTE | 2020-09-27 19:35 | NUR ---
ASSESSMENT/ASSUMED CARE PT AWAKE, REPOSITIONED AND BOOSTED IN BED. PT ON BACK WITH PILLOWS UNDER BOTH HIPS AND UNDER KNEES. HOB UP 45 DEGREES. LUNGS COARSE THROUGHOUT. BIPAP ON 28/07 FIO2 60%. SPO2 99% ON BIPAP. SOB WITH ACTIVITY. HEART RATE 90-100. BP STABLE WITH MAP GREATER THAN 65. BT+HYPOACTIVE. PICC LINE TO RIGHT UPPER ARM WITH NS AT 10 ML/HR TIMES 2 AND PRECEDEX AT 0.1 MCQ/KG/HR. MORALES CATH PATENT DRAINING CLEAR YELLOW URINE. PT RESTING QUIETLY AFTER REPOSITIONING. FAMILY AT BEDSIDE
[2020-09-27 20:10] LABS: Magnesium, Blood 1.7 mg/dL (1.6-2.4)
--- NOTE | 2020-09-28 00:45 | NUR ---
RHYTHM CHANGE EKG DONE, AFIB WITH RVR CALL TO DR RODRIGUEZ. AMIODARONE ORDERED. PT RESTARTED ON LEVOPHED FOR HYPOTENSION.
--- NOTE | 2020-09-28 02:03 | NUR ---
PAIN PT C/O ABD PAIN TO UPPER QUADS. MED WITH MORPHINE 2 MG
--- NOTE | 2020-09-28 02:25 | NUR ---
PAIN PT C/O ABD PAIN TO UPPR QUADS. NO CHANGE WITH MORPHINE. MED WITH FENTANYL 25 MCQ
--- NOTE | 2020-09-28 03:04 | NUR ---
PAIN PT YELLING," IT HURTS". PT RUBBING ABD LEFT UPPER QUAD. MED WITH MORPHINE AND DILAUDID PO. REPOSITIONED
[2020-09-28 05:30] LABS: Base Excess Venous 0.1 mmol/L; Bicarbonate Venous 24.2 mmol/L (24.0-30.0); PO2 Venous 38.5 mmHg (38-42); pH Blood Venous 7.45 (7.34-7.37)
[2020-09-28 05:40] LABS: Hematocrit 34.4 % (33.0-51.0); Hemoglobin 11.3 g/dL (11.5-16.0); Mean Corpuscular HGB 30.2 pg (26.0-34.0); Mean Corpuscular HGB Conc 32.8 g/dL (31.5-36.5); Mean Corpuscular Volume 92 fL (80-100); NRBC ABSOLUTE 0.06 K/mm3 (0.00-0.02); NRBC Auto 0.3 /100 WBC (0.0-0.2); Platelet Count 84 K/mm3 (150-400); RDW Coefficient Variation 18.6 % (11.7-14.2); RDW Standard Deviation 59.2 fL (35.1-46.3); Red Blood Cell Count 3.74 M/mm3 (3.80-5.20); White Blood Cell Count 19.39 K/mm3 (4.00-11.30)
[2020-09-28 05:59] LABS: Albumin, Blood 1.4 g/dL (3.4-5.0); Albumin/Globulin Ratio 0.3 (0.8-1.8); Bilirubin, Total 1.2 mg/dL (0.1-1.0); Bun/Creatinine Ratio 27.2 (12.0-20.0); Calcium, Blood 7.7 mg/dL (8.5-10.1); Creatinine, Blood 0.99 mg/dL (0.40-1.00); Globulin, Blood 4.4 g/dL (2.2-4.0); Magnesium, Blood 1.7 mg/dL (1.6-2.4); Potassium, Blood 4.3 mmol/L (3.5-5.5); Total Protein, Blood 5.8 g/dL (6.4-8.2)
--- NOTE | 2020-09-28 06:07 | NUR ---
SHIFT SUMMARY PT CURRENTLY RESTING QUIETLY. PT GIVEN MORPHINE TWICE, FENTANYL ONCE AND DILAUDID PO ONCE FOR PAIN TO UPPER QUAD ABD. PRECEDEX INCREASED FROM 0.1 MCQ/KG/HR TO 0.6 MCQ/KG/HR DUE TO AGITATION AND ANXIETY FROM PAIN. PT WENT FROM SINUS RHYTHM TO AFIB WITH RVR AND WAS STARTED ON AMIODARONE GTT AFTER 150 MG BOLUS. PT CURRENTLY SINUS IN THE 70'S. FREQUENT PVC'S NOTED AND A RUN FOR SVT. PT RESTARTED ON LEVOPHED DUE TO HYPOTENSTION AND TITRATED UP TO 12 MCQ/MIN TO KEEP MAP GREATER THAN 65. LACTIC ACID COMING DOWN CURRENTLY 2.3 FROM 5.9 AND 3.3. PT MOVING SELF AROUND IN BED. AT BEDSIDE. REPORT TO ON COMING NURSE
[2020-09-28 06:40] LABS: Mean Platelet Volume 13.4 fL (9.1-12.4)
[2020-09-28 06:45] LABS: BAND PERCENT MAN 1 % (0-8); BASOPHILS ABSOLUTE MAN 0.96 K/mm3 (0.00-0.23); BASOPHILS PERCENT MAN 5 % (0-2); EOSINOPHILS PERCENT MAN 0 % (0-6); LYMPHOCYTES ABSOLUTE MAN 2.52 K/mm3 (0.84-5.20); LYMPHOCYTES PERCENT MAN 13 % (21-46); MONOCYTES ABSOLUTE MAN 0.38 K/mm3 (0.16-1.47); MONOCYTES PERCENT MAN 2 % (4-13); MYELOCYTE ABSOLUTE MAN 0.77 K/mm3 (0.00-0.00); MYELOCYTE PERCENT MAN 4 % (0-0); NEUTROPHILS ABSOLUTE MAN 14.73 K/mm3 (1.96-9.15); SEG NEUTROPHILS PERCENT MAN 75 % (41-73); TOTAL CELLS COUNTED 100
--- NOTE | 2020-09-28 11:37 | NUR ---
REASSESSMENT PT HAS TOLERATED 2 30 MINUTE BREAKS FROM THE BIPAP THIS MORNING WHILE ON 6L/NC. DURING THESE BREAKS SHE HAS BEEN ABLE TO CONVERSE WITH FAMILY AND EAT ICE CHIPS. PT COUGHS AFTER DRINKING WATER AND ONLY HAS A WEAK COUGH. CONCERN ABOUT ASPIRATION VOICED TO FAMILY AND PT'S STATED THAT HE UNDERSTANDS THE CONCERN BUT THEY'VE CHOSEN TO LET HER HAVE WATER AND ICE CHIPS FOR COMFORT KNOWING THE RISK. PT'S LUNGS ARE COARSE. SPUTUM SHE IS COUGHING UP IS BLOOD TINGED. HR SINUS IN THE 70S. STILL REQUIRING LEVOPHED FOR HYPOTENSION. RECEIVED LASIX THIS MORNING, BUT ONLY ABOUT 20ML OF URINE IN THE COLLECTION BAG. PT COMPLAINS OF UPPER ABDOMINAL PAIN THAT IS MUCH WORSE WHEN SHE COUGHS. MEDICATED WITH PRN MEDICATION. PT'S DAUGHTER HAS SPENT MOST OF THE MORNING WITH PT. SEVERAL FAMILY MEMBERS FLYING IN TO VISIT TODAY. CONTINUING TO MONITOR.
--- NOTE | 2020-09-28 18:31 | NUR ---
SHIFT SUMMARY PT HAS BEEN ABLE TO SPEND MOST OF THE AFTERNOON OFF OF THE BIPAP PER HER REQUEST. SHE STILL GETS DYSPENIC IF SHE HAS A COUGHING FIT, BUT SHE HAS MAINTAINED SPO2 ABOVE 90% ON 5L/NC AND A RR IN THE UPPER 20S. HER LUNGS ARE COARSE. SR. LEVOPHED REMAIN ON. UNABLE TO TITRATE IT DOWN AT ALL TODAY. SHE IS ALERT AND TALKING WITH FAMILY. SIPPING ON DRINKS. MORALES WITH DARK, CL YELLOW URINE, LOW OUTPUT, DR. RODRIGUEZ AWARE. MULTIPLE FAMILY MEMBERS AT THE BEDSIDE AND HAVE BEEN UPDATED THROUGHOUT THE SHIFT BY NURSING STAFF AND MDS. CONTINUING TO MONITOR.
--- NOTE | 2020-09-28 20:15 | NUR ---
ASSESSMENT/ASSUMED CARE PT SITTING UP IN BED VISITING WITH FAMILY. PT REFUSING PAIN MEDS AT THIS TIME. STATES,"I'M ALRIGHT RIGHT NOW". PT REPOSITIONED WITH PILLOWS UNDER BOTTOM TO KEEP COCCYX OFF MATTRESS. TALKED WITH FAMILY ABOUT VISITING HOURS, PT STATES,"NO I DON'T WANT THEM TO GO. WE HAVE NOT BEEN TOGETHER FOR A LONG TIME". FAMILY GIVEN MORE TIME TO VISIT. PT LUNGS COARSE AND DECREASED IN THE BASES ON 6 LITER O2 VIA NC. RESP EVEN AND NONLABORED. HEART RATE REGULAR SINUS IN THE 70'S. PT ON AMIODARONE GTT AT 0.5 MG/HR WILL STOP AT 0100. BP STABLE WITH LEVOPHED AT 12 MCQ/HR, TITRATE TO KEEP MAP GREATER THAN 65. PICC LINE TO RIGHT UPPER ARM, DRSG INTACT. NS 10 ML/HR X2, PRECEDEX AT 0.6 MCQ/KG/HR, LEVOPHED AND AMIODARONE INFUSING. MORALES CATH PATENT DRAINING YELLOW URINE. COCCYX DRSG INTACT.
--- NOTE | 2020-09-28 21:14 | NUR ---
BIPAP FAMILY LEFT FOR THE NIGHT, STILL AT BEDSIDE. PT REFUSING PAIN MEDS AT THIS TIME, BUT REQUESTING BIPAP. BIPAP APPLIED WITH GEL TO NOSE. PT C/O BIPAP BLOWING TO HARD. RT AT BEDSIDE. PT BACK ON 6 LITERS O2 VIA NC.
[2020-09-29 03:36] LABS: Hematocrit 33.6 % (33.0-51.0); Hemoglobin 11.1 g/dL (11.5-16.0); Mean Corpuscular HGB 30.6 pg (26.0-34.0); Mean Corpuscular Volume 93 fL (80-100); NRBC ABSOLUTE 0.12 K/mm3 (0.00-0.02); NRBC Auto 0.3 /100 WBC (0.0-0.2); Platelet Count 65 K/mm3 (150-400); RDW Coefficient Variation 18.2 % (11.7-14.2); RDW Standard Deviation 59.2 fL (35.1-46.3); Red Blood Cell Count 3.63 M/mm3 (3.80-5.20); White Blood Cell Count 36.39 K/mm3 (4.00-11.30)
[2020-09-29 03:43] LABS: Mean Platelet Volume 14.2 fL (9.1-12.4)
[2020-09-29 03:59] LABS: BAND PERCENT MAN 11 % (0-8); BASOPHILS PERCENT MAN 0 % (0-2); EOSINOPHILS ABSOLUTE MAN 0.36 K/mm3 (0.00-0.68); EOSINOPHILS PERCENT MAN 1 % (0-6); LYMPHOCYTES % ATYPICAL MANUAL 1 % (0-0); LYMPHOCYTES ABSOLUTE MAN 1.45 K/mm3 (0.84-5.20); LYMPHOCYTES PERCENT MAN 3 % (21-46); MONOCYTES ABSOLUTE MAN 0.72 K/mm3 (0.16-1.47); MONOCYTES PERCENT MAN 2 % (4-13); MYELOCYTE ABSOLUTE MAN 0.72 K/mm3 (0.00-0.00); MYELOCYTE PERCENT MAN 2 % (0-0); NEUTROPHILS ABSOLUTE MAN 33.11 K/mm3 (1.96-9.15); SEG NEUTROPHILS PERCENT MAN 80 % (41-73); TOTAL CELLS COUNTED 100
[2020-09-29 04:06] LABS: Albumin, Blood 1.3 g/dL (3.4-5.0); Albumin/Globulin Ratio 0.3 (0.8-1.8); Bun/Creatinine Ratio 29.7 (12.0-20.0); Calcium, Blood 7.3 mg/dL (8.5-10.1); Creatinine, Blood 0.98 mg/dL (0.40-1.00); Globulin, Blood 4.4 g/dL (2.2-4.0); Potassium, Blood 3.2 mmol/L (3.5-5.5); Total Protein, Blood 5.7 g/dL (6.4-8.2); Troponin I 0.097 ng/mL (0.000-0.040)
--- NOTE | 2020-09-29 04:55 | NUR ---
CALL TO MD CALL TO DR RODRIGUEZ REGARDING CRITICAL LACTIC ACID OF 4.3. REVIEWED LABS AND LEVOPHED UP TO 14 MCQ/MIN FOR HYPOTENSION. NO NEW ORDERS.
--- NOTE | 2020-09-29 05:39 | NUR ---
SHIFT SUMMARY PT RESTED QUIETLY DURING THE NIGHT. REFUSED TO BE TURNED AFTER THE BEGINNING OF THE NIGHT. MOVING SELF AROUND SLIGHTLY IN BED. DENEIS PAIN OR DISCOMFORT. MED WITH TYLENOL DURING THE NIGHT FOR TEMP 100.2, PT NOW AFEBRILE. LEVOPHED TITRATED UP DURING THE NIGHT TO KEEP MAP GREATER THAN 65, CURRENTLY AT 14 MCQ/MIN VIA PICC LINE. AMIODARONE STOPPED DURING THE NIGHT, PT CONT IN SINUS RHYTHM IN THE 60-70'S. PT REFUSED BIPAP DURING THE NIGHT AND HAS BEEN ON 5 LITER O2 VIA NC ALL NIGHT. SPO2 99-100%. PT IS TAKING PO FLUIDS WITH SOME COUGHING NOTED. STATES,"WE WANT TO GET IN TOUCH WITH [facility] TODAY. WE JUST WANT HER COMFORTABLE". WBC ELEVATED UP TO 36.39, PLT DOWN AT 65, BNP ELEVATED TO 3993 ALONG WITH LACTIC ACID REPORTED TO DR RODRIGUEZ. PRECEDEX CONT AT 0.6 MCQ/KG/HR VIA PICC LINE. POTASSIUM AT 3.2, KCL IVP INFUSING. REPORT TO ON COMING NURSE
--- NOTE | 2020-09-29 06:14 | NUR ---
HOSPICE/COMFORT CARE CAME TO NURSING STATION AND WE REVIEWED HOW THE PT WAS DOING THROUGHOUT THE NIGHT. REQUESTED A GRAB HOOKER AND CONTACT WITH [facility]. PT HAS REQUIRED INCREASE IN LEVOPHED DURING THE NIGHT TO KEEP BP UP. THIS MORNING HER WBC HAS INCREASED. 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 I'M GOING TO HAVE A TALK WITH EVERYONE TODAY. I JUST WANT TO KEEP HER COMFORTABLE".
--- NOTE | 2020-09-29 07:30 | NUR ---
ASSUMED CARE BEDSIDE REPORT RECIEVED. PT AWAKENS EASILY TO VERBAL STIMULI. PT IS ALERT AND ORIENTED TO SELF, FAMILY, AND FOLLOWING DIRECTIONS. PT IS FORGETFUL AT TIMES, BUT IS EASILY REORIENTED. PT WITH PRECEDEX INFUSING AT 0.6 MCG/KG/MIN. PT DENIES ANY PAIN OR DISCOMFORT AT THIS TIME. PT WITH 5L O2 VIA NC, SPO2 >94%. PICC TO MANJINDER IN PLACE WITH LEVOPHED INFUSING AT 14 MCG/MIN AND NS TKO. MORALES TEMP PROBE IN PLACE WITH YELLOW URINE OUTPUT NOTED. PT IS ABLE TO SHIFT SELF IN BED WITH MINIMAL ASSISTANCE. PT SPOUSE AT BEDSIDE. WILL CONTINUE TO MONITOR.
--- NOTE | 2020-09-29 11:07 | NUR ---
DR TELLO / UPDATE DR TELLO AT BEDSIDE. DISCUSSED CURRENT PLAN OF CARE AND PT WISHES WITH PT AND CAREGIVER AT BEDSIDE. PT WISHES TO CONTINUE CURRENT CARE AND IS WILLING TO BE SHOCKED UP TO 3 TIMES IF NEEDED, BUT WOULD LIKE TO REMAIN NO CPR. PT PLANS TO TRANSITION TO COMFORT CARE/HOSPICE IN THE NEAR FUTURE, BUT IS NOT READY TO MAKE THAT CHANGE IN CARE AT THIS TIME. PT IS AWARE OF LEVOPHED DOSE TO SUPPORT BP. WILL CONTINUE TO MONITOR.
--- NOTE | 2020-09-29 11:39 | NUR ---
Patient is sitting up in bed and has friends Josh and Anabella khan. Patient wakes up and asks for ice chips. She is cheerful and joking around. She admits to having very little strength (yet in the midst of her own weakness she makes everyone in the smile). She tells stories about singing with her and children and about her dogs. I provide gentle encouragement and prayer. Patient voices her appreciation and also her desire to well. I explain that she is doing an amazing job and that nothing is required of her. I will continue to remain available to patient and family.
[2020-09-29 14:11] LABS: HEPARIN INDUCED PLATELET AB 0.134 OD (0.000-0.400)
[2020-09-29 17:31] LABS: Vancomycin, Trough 19.7 ug/mL (5.0-10.0)
--- NOTE | 2020-09-29 17:36 | NUR ---
SHIFT SUMMARY PT DOING BETTER THIS SHIFT. PT HAS BEEN MORE ALERT AND TALKATIVE THIS AFTERNOON. PT IS ORIENTED TO SELF, FAMILY, AND ANSWERS MOST QUESTIONS APPROPRIATELY. PT FORGETFUL AT TIMES. PT VITAL SIGNS HAVE REMAINED STABLE. LEVOPHED TITRATED DOWN TO 8 MCG/MIN. VASOPRESSIN INFUSING AT 0.04 UNITS/MIN. PICC TO MANJINDER REMAINS C/D/I. NS INFUSING TKO. PT TOLERATING ICE CHIPS AND WATER WELL. MORALES TEMP PROBE REMAINS IN PLACE WITH YELLOW URINE OUTPUT NOTED. PT WITH MANY FAMILY MEMBERS IN AND OUT THROUGHOUT THE DAY. PT HAS REMAINED AT BEDSIDE THROUGHOUT THE DAY. DR PHILIP AND DR TELLO AT BEDSIDE TO UPDATE AND DISCUSS PLAN OF CARE WITH FAMILY MULTIPLE TIMES THIS SHIFT. PLAN TO CONTINUE CURRENT COURSE OF TREATMENT AT THIS TIME. WILL CONTINUE TO MONITOR AND REPORT OFF TO ONCOMING RN.
--- NOTE | 2020-09-29 21:07 | NUR ---
SHIFT ASSESSMENT ASSUMED CARE OF PT @ 1900, REPORT RECEIVED FROM ERICKSON MARQUEZ. PT ALERT AND ORIENTED, SITTING UPRIGHT IN BED c SPOUSE AT BEDSIDE. SEEMS TO BE IN GOOD SPIRITS, JOKING WITH THIS NURSE, TELLING STORIES ABOUT FAMILY. IS MILDLY FORGETFUL AT TIMES. ON 4-5LPM O2 VIA NC c SATS >95%. HAS SUCTION IN HER HAND, CLEARING YELLOW SECRETIONS WITH ASSISTANCE OF SUCTION. ICE CHIPS READILY AVAILABLE, PT TOLERATING THEM WELL. LEVOPHED AND VASOPRESSIN GTT INFUSING IN MANJINDER PICC, SEE FLOWSHEET. TEMP MORALES CATH PATENT, DRAINING YELLOW URINE. PT REFUSING TO BE TURNED, STATES IT IS VERY DIFFICULT TO FIND HER COMFORTABLE POSITION. PT HAS CALL LIGHT AND BED ADJUSTMENT IN REACH, DENIES ANY PAIN AT THIS TIME. STAYING WITH PT T/O THE NIGHT. WILL CONTINUE TO MONITOR CLOSELY.
[2020-09-30 03:52] LABS: Hematocrit 29.4 % (33.0-51.0); Hemoglobin 9.8 g/dL (11.5-16.0); Mean Corpuscular HGB 30.9 pg (26.0-34.0); Mean Corpuscular HGB Conc 33.3 g/dL (31.5-36.5); Mean Corpuscular Volume 93 fL (80-100); NRBC Auto 0.3 /100 WBC (0.0-0.2); RDW Standard Deviation 58.4 fL (35.1-46.3); Red Blood Cell Count 3.17 M/mm3 (3.80-5.20); White Blood Cell Count 28.91 K/mm3 (4.00-11.30)
[2020-09-30 03:58] LABS: Platelet Count 46 K/mm3 (150-400)
[2020-09-30 04:12] LABS: Alanine Aminotransfer (ALT/SGP 22 U/L (12-78); Albumin, Blood 1.3 g/dL (3.4-5.0); Albumin/Globulin Ratio 0.3 (0.8-1.8); Alk Phos 156 U/L (50-136); Anion Gap 8 mmol/L (6-16); Aspartate Aminotrans (AST/SGOT 29 U/L (12-37); Bilirubin, Total 1.2 mg/dL (0.1-1.0); Blood Urea Nitrogen 25 mg/dL (8-24); Bun/Creatinine Ratio 27.9 (12.0-20.0); CO2, Blood 28 mmol/L (21-32); Calcium, Blood 7.6 mg/dL (8.5-10.1); Chloride, Blood 100 mmol/L (98-108); Globulin, Blood 4.3 g/dL (2.2-4.0); Glomerular Filtration Rate >60 (60-); Glucose, Blood 151 mg/dL (70-99); Magnesium, Blood 1.5 mg/dL (1.6-2.4); Potassium, Blood 2.9 mmol/L (3.5-5.5); Sodium, Blood 136 mmol/L (136-145); Total Protein, Blood 5.6 g/dL (6.4-8.2)
[2020-09-30 04:21] LABS: BAND PERCENT MAN 8 % (0-8); BASOPHILS PERCENT MAN 0 % (0-2); EOSINOPHILS ABSOLUTE MAN 0.57 K/mm3 (0.00-0.68); EOSINOPHILS PERCENT MAN 2 % (0-6); LYMPHOCYTES ABSOLUTE MAN 1.73 K/mm3 (0.84-5.20); LYMPHOCYTES PERCENT MAN 6 % (21-46); METAMYELOCYTE ABSOLUTE MAN 0.57 K/mm3 (0.00-0.00); METAMYELOCYTE PERCENT MAN 2 % (0-0); MONOCYTES ABSOLUTE MAN 0.28 K/mm3 (0.16-1.47); MONOCYTES PERCENT MAN 1 % (4-13); MYELOCYTE ABSOLUTE MAN 1.15 K/mm3 (0.00-0.00); MYELOCYTE PERCENT MAN 4 % (0-0); NEUTROPHILS ABSOLUTE MAN 24.57 K/mm3 (1.96-9.15); SEG NEUTROPHILS PERCENT MAN 77 % (41-73); TOTAL CELLS COUNTED 100
[2020-09-30 04:25] LABS: Phosphorus, Blood 2.9 mg/dL (2.5-4.9)
--- NOTE | 2020-09-30 06:19 | NUR ---
SHIFT SUMMARY PT REMAINS ALERT AND ORIENTED. ABLE TO ASSIST WITH TURNS, REMAINS WEAK. ABLE TO VOID INTO BEDPAN. NO LOOSE STOOL THIS SHIFT. PLACED ON 2LPM O2 VIA NC WHILE SLEEPING c SATS >90%. NO SIGNIFICANT CHANGES IN PT CONDITION. WILL CONTINUE TO MONITOR CLOSELY.
--- NOTE | 2020-09-30 06:25 | NUR ---
SHIFT SUMMARY PT REMAINS ALERT AND ORIENTED, CONTINUES TO HAVE A POSITIVE ATTITUDE, CHATTING WITH STAFF WHEN IN THE ROOM. DID NOT SLEEP MUCH DUE TO CONSISTENT PRODUCTIVE COUGHING, USING SUCTION TO ASSIST WITH SECRETIONS. C/O MODERATE PAIN T/O THE NIGHT IN LEFT UPPER ABDOMEN, MEDICATED c PRN PAIN MEDS. LEVOPHED AND VASOPRESSIN GTT CONTINUES, SEE FLOWSHEET. KCL AND MG INFUSING. NO OTHER SIGNIFICANT CHANGES IN PT CONDITION, WILL CONTINUE TO MONITOR CLOSELY.
--- NOTE | 2020-09-30 08:00 | NUR ---
ASSUMED CARE BEDSIDE REPORT RECIEVED. PT AWAKENS EASILY TO VERBAL STIMULI. PT IS ALERT AND ORIENTED WHEN AWAKE. PT DENIES PAIN OR DISCOMFORT AT THIS TIME. PT ON 4L O2 NC. VITAL SIGNS STABLE. LEVOPHED INFUSING AT 4 MCG/MIN AND VASOPRESSIN AT 0.04 UNITS/MIN. NS INFUSING TKO. PICC TO MANJINDER C/D/I. PT TAKING PO INTAKE WELL, BUT HAS POOR APPETITE. MORALES TEMP PROBE IN PLACE WITH CLEAR YELLOW OUTPUT NOTED. PT SPOUSE AT BEDSIDE. WILL CONTINUE TO MONITOR.
--- NOTE | 2020-09-30 10:48 | NUR ---
Attempted a supportive visit. Corrina is known to this senior grant writer from previous [facility] visits. She is currently sleeping with the lights off in her room. Left undisturbed at this time. PC to remain available for supportive visits prn. Cdl A Driver working with pt and family on advanced care planning.
--- NOTE | 2020-09-30 17:18 | NUR ---
SHIFT SUMMARY PT DID WELL THROUGHOUT THE SHIFT. PT HAS REMAINED ALERT AND ORIENTED. PT WITH SOME ABDOMINAL DISCOMFORT THIS SHIFT. PT MED PER EMAR. PT ABLE TO BE TITRATED OFF LEVOPHED. VASOPRESSIN CONTINUES TO INFUSE PER DR PHILIP AT THIS TIME. VITAL SIGNS HAVE REMAINED STABLE. PT ON 4L O2 NC. PT ASSISTS WITH REPOSITIONING WELL. PT WITH IMPROVING APPETITE THIS SHIFT. PICC REMAINS C/D/I. MORALES TEMP PROBE REMAINS IN PLACE WITH CLEAR YELLOW OUTPUT NOTED. PT SPOUSE REMAINS AT BEDSIDE. WILL CONTINUE TO MONITOR AND REPORT OFF TO ONCOMING RN.
--- NOTE | 2020-09-30 22:25 | NUR ---
SHIFT ASSESSMENT ASSUMED CARE OF PT @ 1900, REPORT RECEIVED FROM ERICKSON MARQUEZ. PT SLEEPING DURING REPORT, WOKE AROUND 1999 COUGHING. PT A&OX4, REQUESTING ICE CHIPS AND PAIN MEDS, REPORTING MODERATE ABD PAIN. MEDICATED c PRN PAIN MEDS. LEVOPHED AND VASOPRESSIN INFUSING INTO PICC. ASSISTED PT TO MORE COMFORTABLE POSITION ON HER LEFT SIDE, ONLY TOLERATING SMALL MOVEMENTS. HEEL PADS PLACED BL. TEMP MORALES CATH PATENT, DRAINING TO GRAVITY. PT AT BEDSIDE. WILL CONTINUE TO MONITOR CLOSELY.
[2020-10-01 03:19] LABS: Hematocrit 26.6 % (33.0-51.0); Hemoglobin 8.5 g/dL (11.5-16.0); Mean Corpuscular HGB 30.2 pg (26.0-34.0); Mean Corpuscular Volume 95 fL (80-100); NRBC ABSOLUTE 0.08 K/mm3 (0.00-0.02); NRBC Auto 0.5 /100 WBC (0.0-0.2); Platelet Count 51 K/mm3 (150-400); RDW Coefficient Variation 18.2 % (11.7-14.2); RDW Standard Deviation 60.5 fL (35.1-46.3); Red Blood Cell Count 2.81 M/mm3 (3.80-5.20); White Blood Cell Count 16.98 K/mm3 (4.00-11.30)
[2020-10-01 03:24] LABS: Mean Platelet Volume 13.8 fL (9.1-12.4)
[2020-10-01 03:32] LABS: Anion Gap 5 mmol/L (6-16); Blood Urea Nitrogen 23 mg/dL (8-24); Bun/Creatinine Ratio 27.1 (12.0-20.0); CO2, Blood 32 mmol/L (21-32); Calcium, Blood 7.7 mg/dL (8.5-10.1); Chloride, Blood 102 mmol/L (98-108); Creatinine, Blood 0.85 mg/dL (0.40-1.00); Glomerular Filtration Rate >60 (60-); Glucose, Blood 138 mg/dL (70-99); Potassium, Blood 3.4 mmol/L (3.5-5.5); Sodium, Blood 139 mmol/L (136-145)
[2020-10-01 03:43] LABS: BAND PERCENT MAN 5 % (0-8); BASOPHILS PERCENT MAN 0 % (0-2); EOSINOPHILS PERCENT MAN 0 % (0-6); LYMPHOCYTES ABSOLUTE MAN 1.18 K/mm3 (0.84-5.20); LYMPHOCYTES PERCENT MAN 7 % (21-46); METAMYELOCYTE PERCENT MAN 3 % (0-0); MONOCYTES ABSOLUTE MAN 0.16 K/mm3 (0.16-1.47); MONOCYTES PERCENT MAN 1 % (4-13); MYELOCYTE ABSOLUTE MAN 0.16 K/mm3 (0.00-0.00); MYELOCYTE PERCENT MAN 1 % (0-0); NEUTROPHILS ABSOLUTE MAN 14.94 K/mm3 (1.96-9.15); SEG NEUTROPHILS PERCENT MAN 83 % (41-73); TOTAL CELLS COUNTED 100
[2020-10-01 04:07] LABS: Magnesium, Blood 1.7 mg/dL (1.6-2.4); Phosphorus, Blood 2.4 mg/dL (2.5-4.9)
--- NOTE | 2020-10-01 06:47 | NUR ---
SHIFT SUMMARY PT REMAINS A&OX4. SEEMS TO HAVE SLEPT BETTER THAN PREVIOUS NIGHT. COUGHING LESS BUT CONTINUES TO PRODUCE MODERATE AMNTS OF YELLOW SPUTUM. VASOPRESSIN GTT CONTINUES, LEVOPHED PLACED ON SB AROUND MIDNIGHT AND REMAINS ON SB. TEMP MORALES CATH DRAINING CLEAR/YELLOW URINE, PT AFEBRILE. KPHOSPH BEING REPLACED AT THIS TIME. PTS APPETITE MAY BE IMPROVING, REQUESTING CREAM OF WHEAT AND RAISANS. WILL CONTINUE TO MONITOR, REPORT TO ONCOMING NURSE.
--- NOTE | 2020-10-01 07:30 | NUR ---
ASSUMED CARE REPORT RECIEVED. UPON ENTERING ROOM PT IS RESTING QUIETLY. PT AWAKENS TO VERBAL STIMULI. PT IS ALERT AND ORIENTED WHEN AWAKE. PT FALLS BACK ASLEEP QUICKLY. PT ON 2L O2 NC. VITAL SIGNS STABLE. PT WITH LEVOPHED ON STANDBY, VASOPRESSIN GTT INFUSING AT 0.04 UNITS/MIN, AND NS TKO. PICC TO MANJINDER C/D/I. MORALES TEMP PROBE IN PLACE WITH CLEAR YELLOW OUTPUT NOTED. PT SPOUSE AT BEDSIDE. WILL CONTINUE TO MONITOR.
--- NOTE | 2020-10-01 17:55 | NUR ---
SHIFT SUMMARY NO ACUTE CHANGES THIS SHIFT. PT HAS BEEN DROWSEY THROUGHOUT THE DAY, BUT REMAINS ALERT AND ORIENTED WHEN AWAKE. PT VITAL SIGNS HAVE REMAINED STABLE. PT OFF ALL PRESSORS SINCE THIS AM. PT ON 1L O2 NC. PT UP TO RECLINER CHAIR FOR SHORT TIME THIS AFTERNOON. PT WITH IMPROVING APPETITE. PICC TO MANJINDER REMAINS IN PLACE WITH NS INFUSING TKO. MORALES TEMP PROBE IN PLACE WITH CLEAR YELLOW OUTPUT NOTED. PT SPOUSE AT BEDSIDE. WILL CONTINUE TO MONITOR AND REPORT OFF TO ONCOMING RN.
--- NOTE | 2020-10-01 22:48 | NUR ---
SHIFT ASSESSMENT ASSUMED CARE OF PT @ 1900. REPORT RECEIVED FROM ERICKSON MARQUEZ. PT A@OX4 IN ROOM. AWAKENS EASILY TO VERBAL STIMULI, STATES SHE FEELS BETTER, HOPES TO GET MORE SLEEP. FAMILY AT BEDSIDE SITTING QUIETLY, ALLOWING PT TO REST. PT OFF OF PRESSORS, DOWN TO 1LPM O2 VIA NC c SATS >90%. COUGHING MUCH LESS, STILL SECRETING SMALL AMOUNTS OF YELLOW SPUTUM. TEMP MORALES CATH PATENT, DRAINING CLEAR YELLOW URINE. APPETITE INCREASING SLOWLY, ABLE TO EAT SMALL AMNTS TODAY. NO BM. NEW MEPILEX PAD PLACED TO COCCYX, TURNING PT TO HARDER RIGHT/ LEFT, TOLERATING TURNS MUCH BETTER, ABLE TO GENTLY ASSIST NURSE WITH TURN. CALL LIGHT IN REACH, WILL CONTINUE TO MONITOR CLOSELY.
[2020-10-02 03:33] LABS: Mean Corpuscular HGB 30.3 pg (26.0-34.0); Mean Corpuscular HGB Conc 32.1 g/dL (31.5-36.5); Mean Corpuscular Volume 94 fL (80-100); NRBC ABSOLUTE 0.07 K/mm3 (0.00-0.02); NRBC Auto 0.4 /100 WBC (0.0-0.2); Platelet Count 72 K/mm3 (150-400); RDW Standard Deviation 58.8 fL (35.1-46.3); Red Blood Cell Count 2.97 M/mm3 (3.80-5.20); White Blood Cell Count 17.58 K/mm3 (4.00-11.30)
[2020-10-02 03:38] LABS: Mean Platelet Volume 13.1 fL (9.1-12.4)
[2020-10-02 03:47] LABS: Anion Gap 6 mmol/L (6-16); Blood Urea Nitrogen 22 mg/dL (8-24); Bun/Creatinine Ratio 26.8 (12.0-20.0); CO2, Blood 33 mmol/L (21-32); Calcium, Blood 7.5 mg/dL (8.5-10.1); Chloride, Blood 99 mmol/L (98-108); Creatinine, Blood 0.82 mg/dL (0.40-1.00); Glomerular Filtration Rate >60 (60-); Glucose, Blood 89 mg/dL (70-99); Potassium, Blood 2.8 mmol/L (3.5-5.5); Sodium, Blood 138 mmol/L (136-145)
[2020-10-02 04:05] LABS: Magnesium, Blood 1.5 mg/dL (1.6-2.4); Phosphorus, Blood 2.5 mg/dL (2.5-4.9)
[2020-10-02 04:24] LABS: BAND PERCENT MAN 5 % (0-8); BASOPHILS PERCENT MAN 0 % (0-2); EOSINOPHILS ABSOLUTE MAN 1.05 K/mm3 (0.00-0.68); EOSINOPHILS PERCENT MAN 6 % (0-6); LYMPHOCYTES ABSOLUTE MAN 2.28 K/mm3 (0.84-5.20); LYMPHOCYTES PERCENT MAN 13 % (21-46); METAMYELOCYTE ABSOLUTE MAN 0.52 K/mm3 (0.00-0.00); METAMYELOCYTE PERCENT MAN 3 % (0-0); MONOCYTES ABSOLUTE MAN 0.17 K/mm3 (0.16-1.47); MONOCYTES PERCENT MAN 1 % (4-13); MYELOCYTE ABSOLUTE MAN 0.17 K/mm3 (0.00-0.00); MYELOCYTE PERCENT MAN 1 % (0-0); NEUTROPHILS ABSOLUTE MAN 13.36 K/mm3 (1.96-9.15); SEG NEUTROPHILS PERCENT MAN 71 % (41-73); TOTAL CELLS COUNTED 100
--- NOTE | 2020-10-02 05:47 | NUR ---
SHIFT SUMMARY PT REMAINS ALERT AND ORIENTED. ABLE TO SLEEP SIGNIFICANTLY MORE THAN THE PREVIOUS NIGHT. PRODUCTIVE COUGH, BUT FREQUENCY DIMINISHED FROM PREVIOUS NIGHT. TOLERATING HARDER TURNS TO LEFT AND RIGHT. APPEARS TO BE MORE COMFORTABLE. TEMP MORALES CATH PATENT, DRAINING YELLOW URINE. TOLERATING JUICE AND SMALL SNACKS, APPETITE SLOWLY IMPROVING. PT BEGINNING TO PASS GAS, NO BM. VSS, PRESSORS REMAIN OFF. 1LPM O2 VIA NC c SATS >95%. NO ACUTE CHANGES. SPOUSE REMAINS AT BEDSIDE.
--- NOTE | 2020-10-02 08:00 | NUR ---
ASSUMED CARE: REPORT RECEIVED FROM SEBASTIAN Machuca RN. ASSUMED CARE OF THIS PT AT APPROX 0700. ON ASSESSMENT, THE PT IS AWAKENS EASILY TO VERBAL STIMULUS & IS ALERT/ORIENTED TO ALL. LS ARE DIM IN BASES, PT ON 1L NC W/ O2 SATS > 92%. SHE IS COUGHING UP SMALL AMNTS THICK STERLING/YELLOW SPUTUM & COMPLETING ORAL SUCTION W/ YANKAUR. MONITOR SHOWS SR W/ HR 80s, BP STABLE. THE PT HAS NO GI COMPLAINTS, MINIMAL APPETITE WHICH SHE STS IS NORMAL FOR HER. SKIN CONDITION OVERALL FRAGILE. NEW DRESSING PLACED TO SMALL COCCYX PRESSURE ULCER BY PRIOR SHIFT RN. Q2H REPOSITIONING TO MAINTAIN SKIN INTEGRITY. WILL CONTINUE TO MONITOR & UPDATE NEEDED.
--- NOTE | 2020-10-02 12:19 | NUR ---
DR KEANE: PROVIDER AT BEDSIDE TO EVAL PT. STS OKAY FOR TRANSFER TO PCU STATUS, NO OTHER CHANGES AT THIS TIME.
--- NOTE | 2020-10-02 16:35 | NUR ---
SHIFT SUMMARY / TRANSFER TO PCU: NO ACUTE CHANGES THIS SHIFT. PT REMAINS A&O, PLEASANT & COOPERATIVE. SHE HAS SOME C/O PAIN TO UPPER ABD, ESPECIALLY AFTER EATING A SMALL AMNT OF LUNCH. PRN DILAUDID PER EMAR. LS DIM, PT ON 1L NC WHILE SLEEPING FOR DESATS TO 89%. MONITOR SHOWS SR W/ HR 80s, BP STABLE. THE PT HAS NO C/O NAUSEA, IS PASSING FLATUS, MIRALAX PER ORDERS FOR NO BM SINCE ADMIT. MORALES PATENT/ DRAINING DARK YELLOW URINE. DIURESIS PER EMAR - SEE I&O. SKIN CONDITION OVERALL FRAGILE & ECCHYMOTIC, WOUND TO COCCYX W/ DRESSING CDI. Q2H REPOSITIONING TO MAINTAIN SKIN INTEGRITY. THIS RN NOTIFIED OF PT NEW BED ASSIGNMENT PCU-15. THE PT & HER DAUGHTER HAVE BEEN UPDATED ON THIS. REPORT GIVEN TO RAYMUNDO Fuentes RN TO ASSUME CARE. PT, BELONGINGS, CHART & MEDS TAKEN TO ROOM PCU-15 AT APPROX 1630.
[2020-10-02 17:26] LABS: Vancomycin, Trough 20.3 ug/mL (5.0-10.0)
--- NOTE | 2020-10-02 17:32 | NUR ---
TRANSFER NOTE PT TO ROOM AT APPROX 1630. THIS RN ASSESSED PT AND AM IN AGREEMENT WITH PREVIOUS RN. VSS. NO OTHER ACUTE CHANGE NOTED. WILL CONTINUE TO MONITOR UNTIL REPORT GIVEN TO ONCOMING RN.
--- NOTE | 2020-10-02 19:01 | NUR ---
Reviw of hospice with patients . He states pt daughter is struggling with acceptance. He sates their house will be ready in two to tree weeks. Sheis struggling with friends and family not able to interact with her. She wants to live until he gets settled in the house. They want [facility] hospice. called [facility] to review patient thinks the cannot get her back in the trailer. Called [facility] to see if [employer] or [facility] will pay for motel for three weeks. will see if alexandra can rally the money to pay for motel and be able to visit with her until house is settled. asked to see if they can get house operable sooner. called dr garcia to speak with about prognosis he wanted that conversation.
[2020-10-03 04:23] LABS: BASOPHILS ABSOLUTE AUTO 0.18 K/mm3 (0.00-0.23); BASOPHILS PERCENT AUTO 1 % (0-2); EOSINOPHILS ABSOLUTE AUTO 0.87 K/mm3 (0.00-0.68); EOSINOPHILS PERCENT AUTO 4 % (0-6); Hematocrit 31.2 % (33.0-51.0); Hemoglobin 9.9 g/dL (11.5-16.0); IMMATURE GRAN ABSOLUTE AUTO 1.31 K/mm3 (0.00-0.10); IMMATURE GRAN PERCENT AUTO 6 % (0-1); LYMPHOCYTES ABSOLUTE AUTO 2.17 K/mm3 (0.84-5.20); LYMPHOCYTES PERCENT AUTO 11 % (21-46); MONOCYTES ABSOLUTE AUTO 0.54 K/mm3 (0.16-1.47); MONOCYTES PERCENT AUTO 3 % (4-13); Mean Corpuscular HGB 30.2 pg (26.0-34.0); Mean Corpuscular HGB Conc 31.7 g/dL (31.5-36.5); Mean Corpuscular Volume 95 fL (80-100); Mean Platelet Volume 12.4 fL (9.1-12.4); NEUTROPHILS ABSOLUTE AUTO 15.29 K/mm3 (1.96-9.15); NEUTROPHILS PERCENT AUTO 75 % (41-73); NRBC ABSOLUTE 0.07 K/mm3 (0.00-0.02); NRBC Auto 0.3 /100 WBC (0.0-0.2); Platelet Count 88 K/mm3 (150-400); RDW Coefficient Variation 18.1 % (11.7-14.2); RDW Standard Deviation 59.4 fL (35.1-46.3); Red Blood Cell Count 3.28 M/mm3 (3.80-5.20); White Blood Cell Count 20.36 K/mm3 (4.00-11.30)
[2020-10-03 04:42] LABS: Albumin, Blood 1.4 g/dL (3.4-5.0); Anion Gap 6 mmol/L (6-16); Blood Urea Nitrogen 16 mg/dL (8-24); Bun/Creatinine Ratio 21.9 (12.0-20.0); CO2, Blood 32 mmol/L (21-32); Calcium, Blood 7.7 mg/dL (8.5-10.1); Chloride, Blood 98 mmol/L (98-108); Creatinine, Blood 0.73 mg/dL (0.40-1.00); Glomerular Filtration Rate >60 (60-); Glucose, Blood 81 mg/dL (70-99); Phosphorus, Blood 2.5 mg/dL (2.5-4.9); Potassium, Blood 2.9 mmol/L (3.5-5.5); Sodium, Blood 136 mmol/L (136-145)
[2020-10-03 04:45] LABS: BAND PERCENT MAN 4 % (0-8); BASOPHILS PERCENT MAN 0 % (0-2); EOSINOPHILS ABSOLUTE MAN 1.01 K/mm3 (0.00-0.68); EOSINOPHILS PERCENT MAN 5 % (0-6); LYMPHOCYTES ABSOLUTE MAN 1.62 K/mm3 (0.84-5.20); LYMPHOCYTES PERCENT MAN 8 % (21-46); METAMYELOCYTE ABSOLUTE MAN 0.81 K/mm3 (0.00-0.00); METAMYELOCYTE PERCENT MAN 4 % (0-0); MONOCYTES PERCENT MAN 2 % (4-13); MYELOCYTE ABSOLUTE MAN 0.61 K/mm3 (0.00-0.00); MYELOCYTE PERCENT MAN 3 % (0-0); NEUTROPHILS ABSOLUTE MAN 15.67 K/mm3 (1.96-9.15); PROMYELOCYTE PERCENT MAN 1 % (0-0); SEG NEUTROPHILS PERCENT MAN 73 % (41-73); TOTAL CELLS COUNTED 100
--- NOTE | 2020-10-03 05:52 | NUR ---
SHIFT SUMMARY PT IS ALERT AND ORIENTED. THERE HAVE BEEN NO ACUTE CHNAGES. PT DENIES CHEST PAIN. VITALS ARE STABLE AND IS ON 2L NC WITH SATS ABOVE 92%. PT HAS MORALES AND IS DRAINING TO GRAVITY. PT HAS BEEN PAINFUL WITH MOVEMENT AND HAS ASKED BE MEDICATED WITH PAIN MEDS Q4. TOLERATES BEING REPOSITIONED WELL. IS AT THE BEDSIDE AND IS EXPECTING FAMILY TO COME VISIT PT TODAY. CALL LIGHT IS WITHIN REACH.
--- NOTE | 2020-10-03 05:56 | NUR ---
CALLED DR DE LOS SANTOS REGARDING LOW K+; ORDER ENTERED PER EMAR.
--- NOTE | 2020-10-03 06:22 | NUR ---
SHIFT SUMMARY PT IS ALERT BUT DISORIENTED. PT HAS BEEN VERY AGITATED, CONFUSTED, TRYING TO TAKE OUT LINES, WANTING TO LEAVE, REFUSING CARE, DESPITE FAMILY BEING AT BEDSIDE. HEPARIN IS RUNNING AT THE MOMENT. PT IS ABLE TO USE BSC ON SBA . DAUGHTER AND HAVE BEEN AT BEDSIDE SINCE A LITTLE AFTER MIDNIGHT. PT HAS HAD VERY LITTLE SLEEP OF APPROX 30 MINS T/O NIGHT. FAMILY REPORTS THIS TYPE OF EPISODE HAPPENED BEFORE.
--- NOTE | 2020-10-03 13:25 | NUR ---
Received call from Pt's Primary RN reporting spouse is requesting to speak with Palliative Care. Pt resting in bed upon arrival. Halina from PT at bedside getting ready to work with Pt. Confirmed with Pt her goals. Pt reporting goal is home with hospice. Ended visit to allow PT to work with Pt. Will attempt to visit with Pt later today. Called and spoke with Pt's spouse Marshall. Offered therapeutic listening. Marshall reports being in agreement with Pt's decision for hospice but states Pt can not come home in the her condition. Deferred many questions for caremanager Camargo to answer. Provided Marshall Camargo's contact information. Continued therapeutic listening. Marshall expresses appreciaiton and reports no other concerns at this time. Received call from Pt's daughter Cherelle. Cherelle is requesting Palliative Care to confirm Pt's understanding of her options including continuing treatment for her cancer if she starts to improve and feel better. Continued therapeutic listening and answered questions. Cherelle expresses appreciation and reports no other concerns at this time. Palliative Care will remain available.
--- NOTE | 2020-10-03 20:05 | NUR ---
SHFIT SUMMARY PT A&Ox4; CALM AND COOPERATIVE WITH CARE. PT RESTING IN BED DURING SHIFT, REPOSITIONED Q2, PT ASSIST WITH REPOSITIONING. PT REPORT UPPER ABD PAIN, MEDICATED x1 WTIH PO DILAUDID PER ORDERS. PT ON 2L O2 VIA NC, DESATURATES IN SLEEP. PT RECEIVED IV LASIX, ANTIBITOICS AND KCL. PICC LINE THIS AM NOT FLUSHING, DRESSING CHANGES AND ARM MOVED INTO DIFFERENT POSITIONS; WHEN PT SITTING UP IN BED, THE PICC LINE STARTED FLSUHING AND HAS BEEN POSITIONAL SINCE AND DOES NOT DRAW. PT DENIES CHEST PAIN, NASUEA AND DIZZINESS. VSS. NO OTHER ACUTE CHANGES NOTED. REPORT GIVEN TO ONCOMING RN.
--- NOTE | 2020-10-04 05:16 | NUR ---
SHIFT SUMMARY: NO SIGNIFICANT CHANGES THIS SHIFT. PT A&O X4. PT APPEARS TO BE RESTING MOST OF NIGHT. REPOSITIONED Q2 REQUIRING MINIMAL ASSIST. MEPILIEX DRESSING TO COCCYX C/D/I. MEDICATED WITH 2MG DILAUDID PER EMAR FOR C/O ABD PAIN. O2 >92% ON 1L VIA NC. ALL OTHER VS WNL. SR WITH OCCASIONAL PVC'S AT 86 PER TELE. PT TOLERATING ICE CHIPS T/O NIGHT. DENIES N/V. MORALES PATENT AND DRAINING CLEAR YELLOW URINE. FLUIDS TKO WITH ORDERED ABX.
[2020-10-04 08:32] LABS: Hematocrit 32.5 % (33.0-51.0); Hemoglobin 10.4 g/dL (11.5-16.0); Mean Corpuscular HGB 30.8 pg (26.0-34.0); Mean Corpuscular Volume 96 fL (80-100); Mean Platelet Volume 12.8 fL (9.1-12.4); NRBC ABSOLUTE 0.02 K/mm3 (0.00-0.02); NRBC Auto 0.1 /100 WBC (0.0-0.2); Platelet Count 129 K/mm3 (150-400); RDW Coefficient Variation 18.9 % (11.7-14.2); RDW Standard Deviation 61.1 fL (35.1-46.3); Red Blood Cell Count 3.38 M/mm3 (3.80-5.20); White Blood Cell Count 19.64 K/mm3 (4.00-11.30)
[2020-10-04 08:51] LABS: Albumin, Blood 1.5 g/dL (3.4-5.0); Anion Gap 5 mmol/L (6-16); Blood Urea Nitrogen 12 mg/dL (8-24); Bun/Creatinine Ratio 15.2 (12.0-20.0); CO2, Blood 35 mmol/L (21-32); Calcium, Blood 7.7 mg/dL (8.5-10.1); Chloride, Blood 96 mmol/L (98-108); Creatinine, Blood 0.79 mg/dL (0.40-1.00); Glomerular Filtration Rate >60 (60-); Glucose, Blood 78 mg/dL (70-99); Magnesium, Blood 1.8 mg/dL (1.6-2.4); Phosphorus, Blood 2.5 mg/dL (2.5-4.9); Potassium, Blood 2.9 mmol/L (3.5-5.5); Sodium, Blood 136 mmol/L (136-145)
--- NOTE | 2020-10-04 11:45 | NUR ---
Spiritual care visit conducted. Patient is lying in bed and alert. Based on an earlier conversation I had with the patient, I brought my guitar into patient's room and played guitar for her. 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 I played a few songs then patient would talk about the music she loves and played a few songs on YouTube for me then I would play a couple more songs and patient would share about the things that are meaningful and important to her in this last season of her life. Patient brightened up, sat up and seemed to enjoy the music and dialogue and was very engaged in it then patient began to get a bit sleepy so I let her rest. I will continue to discuss , dying and the spiritual/ emotional aspect that the patient is trying to process.
--- NOTE | 2020-10-04 18:28 | NUR ---
pt resting no family in at time of visit. Review of pt and husbands stress with a plan going forward. Review of pt needs with childcare director. Daughter is reenforcing that pt can return to treatment if she improves. Will remain availale to family for support.
--- NOTE | 2020-10-04 18:40 | NUR ---
SHIFT SUMMARY PT A&Ox4; CALM AND COOPERATIVE WITH CARE. PT RESTING IN BED FOR MAJOIRTY OF SHIFT. UP WITH 1 PERSON ASSIST TO CHAIR THIS AM. PT SITTING ON SIDE OF BED FOR MEALS. PT REPORTS ABD PAIN, MEDICATED PER EMAR. NO BM, ABD DISTENDED, PT REPORTS PASSING GAS; NOTIFIED DR KEANE, NEW ORDERS FOR MIRALAX BID AND SENNOSIDES 17.2 MG AT BEDTIME. PT DENIES CHEST PAIN, SOB, NAUSEA AND DIZZINESS. PT RECEIVING IV ANTIBITOICS AND KCL REPLACEMENT. PT RECEIVEING PO KCL. REPOSITIONED Q2; EGG CRATE PLACED ON BED AND PILLOWS. DRESSING CHANGES TO COCCXY THIS AM DURING BEDBATH. VSS. NO OTHER ACUTE CHANGES NOTED DURING SHIFT. WILL CONTINUE TO MONITOR UNITL REPORT GIVEN TO ONCOMING RN.
--- NOTE | 2020-10-05 06:02 | NUR ---
SHIFT SUMMARY PATIENT FOUND TO BE A PLEASANT LADY WHO IS A&OX4, DECONDITIONED WITH GEN WEAKNESS. SLEPT WELL MOST OF SHIFT. AT BEDSIDE. ON 2L NC FOR COMFORT. DILAUDID Q4H FOR PAIN CONTROL R/T PANCREATIC CANCER. PATIENT REFUSING TO MOVE MUCH IN BED D/T PAIN. VSS. SR IN 80'S. ABDOMEN MODERATELY DISTENDED AND PATIENT STATES SHE IS A BIT UNCOMFORTABLE. GAVE BOWEL MEDS AND GOT AN ENEMA ORDERED FOR IF NEEDED. PATIENT WANTED TO GIVE MEDS TIME TO WORK AND WILL ASK FOR ENEMA IF DISCOMFORT GETS WORSE. HYPOACTIVE BOWEL SOUNDS BUT PASSING GAS. ADMITS SHE IS NOT EATING MUCH R/T THIS DISCOMFORT THAT WORSENS WITH INTAKE. MORALES PATENT DRAINING TO GRAVITY. IV ABX INFUSING PER ORDER. ENCOURAGING Q2H TURNS IN BED WITH PATIENT OFTEN REFUSING. NO ACUTE CONCERNS AT THIS TIME. WILL CONTINUE TO MONITOR UNTIL REPORT GIVEN TO DAYSHIFT RN.
--- NOTE | 2020-10-05 08:00 | NUR ---
PT LAYING IN BED AWAKE A/OX3, FORGETFUL, PLEASANT AND COOPERTIVE WITH CARE, FOLLOWS COMMANDS WELL, DENIES PAIN OR SOB, LUNGS ARE CLEAR IN UPPER JOE, DIM IN BASES, RESP EVEN AND UNLABORED, NO COUGH NOTED, HRR, TELE IN PLACE RUNNING SR PER MONITOR, SEE STRIP, NO EDEMA NOTED, PPP FAINT, CAP REFILL <3SEC, VS STABLE, AFEBRILE, IV SITE IS CLEAR AND PATENT, PICC LINE TO TAJ SITE IS CLEAR AND PATENT, AND DRAWS WELL, BTX4, ABD DISTENDED, NO BM SINCE THE , WILL DO BOWEL CARE TODAY, MORALES CATH DRAINING CLEAR YELLOW URINE, SKIN HAS A WOUND TO COCCYX WITH MEPILEX DRESSING IN PLACE, SHE IS A ONE PERSON ASSIST TO CHAIR, WEAK, JOANNE, CALL LIGHT IN REACH.
[2020-10-05 09:09] LABS: Hematocrit 29.2 % (33.0-51.0); Hemoglobin 9.4 g/dL (11.5-16.0); Mean Corpuscular HGB 31.1 pg (26.0-34.0); Mean Corpuscular HGB Conc 32.2 g/dL (31.5-36.5); Mean Corpuscular Volume 97 fL (80-100); Mean Platelet Volume 11.3 fL (9.1-12.4); Platelet Count 153 K/mm3 (150-400); RDW Coefficient Variation 19.1 % (11.7-14.2); RDW Standard Deviation 63.2 fL (35.1-46.3); Red Blood Cell Count 3.02 M/mm3 (3.80-5.20); White Blood Cell Count 15.46 K/mm3 (4.00-11.30)
[2020-10-05 09:36] LABS: Albumin, Blood 1.4 g/dL (3.4-5.0); Anion Gap 3 mmol/L (6-16); Blood Urea Nitrogen 13 mg/dL (8-24); Bun/Creatinine Ratio 17.1 (12.0-20.0); CO2, Blood 36 mmol/L (21-32); Calcium, Blood 7.6 mg/dL (8.5-10.1); Chloride, Blood 97 mmol/L (98-108); Creatinine, Blood 0.76 mg/dL (0.40-1.00); Glomerular Filtration Rate >60 (60-); Glucose, Blood 93 mg/dL (70-99); Phosphorus, Blood 2.6 mg/dL (2.5-4.9); Potassium, Blood 3.4 mmol/L (3.5-5.5); Sodium, Blood 136 mmol/L (136-145)
[2020-10-05] MEDS ORDERED: MIRALAX119 GM PO (15:06)
[2020-10-05] MEDS ORDERED: Acetaminophen650 M1 PO (15:06)
[2020-10-05] MEDS ORDERED: POTCHL20ER PO (15:08)
[2020-10-05] MEDS ORDERED: AKWA Tears15 ML BOTHEYES (15:08)
[2020-10-05] MEDS ORDERED: VISBIOME 112.51 EACH PO (15:09)
[2020-10-05] MEDS ORDERED: AMOCLA875 PO (15:10)
[2020-10-05] MEDS ORDERED: ASPI81CH PO (15:10)
[2020-10-05] MEDS ORDERED: CARV3.125 PO (15:11)
[2020-10-05] MEDS ORDERED: Lisinopril2.5 MG PO (15:13)
[2020-10-05] MEDS ORDERED: FUROSEMIDE20 MG PO (15:13)
[2020-10-05 16:29] LABS: SARS-Cov-2 (COVID-19) PCR, MMC NEGATIVE (NEGATIVE)
--- NOTE | 2020-10-05 16:31 | NUR ---
pt is discharged to rehab today, she did have a med bm, pt and daughter aware. will be leaving at 1830 tonight. call light in reach.
--- NOTE | 2020-10-05 17:33 | NUR ---
Review of [facility] care manger . plan is snf
--- NOTE | 2020-10-05 18:41 | NUR ---
pt was tx to [facility], family at bedside, picc was removed by battery charger, left via wheelchair with family and director index. report called to rehab. pt has all belongings.
== END 2020-10-05 18:32 | DRG 871 ==
LOC: ER 01:25 → PCU 03:31 → ICUW 03:31 → ERHOLD 03:31 → ICUW 08:15 → PCU 10-02 16:22
PROVIDERS: Emergency Medicine; Family Medicine; Internal Medicine; Internal Medicine Critical Care Medicine; Internal Medicine Pulmonary Disease; ADMIT Internal Medicine
PROC: 3E033XZ Introduction of Vasopressor into Peripheral Vein, Percutaneous Approach (ICD-10-PCS; 2020-09-26)
PROC: 5A09357 Assistance with Respiratory Ventilation, Less than 24 Consecutive Hours, Continuous Positive Airway Pressure (ICD-10-PCS; 2020-09-26)
PROC: 5A2204Z Restoration of Cardiac Rhythm, Single (ICD-10-PCS; principal; 2020-09-27)
PROC: 02HV33Z Insertion of Infusion Device into Superior Vena Cava, Percutaneous Approach (ICD-10-PCS; 2020-09-30)
DX: A40.8 Other streptococcal sepsis (principal); J18.9 Pneumonia, unspecified organism; J96.01 Acute respiratory failure with hypoxia; R65.21 Severe sepsis with septic shock; I50.21 Acute systolic (congestive) heart failure; I46.2 Cardiac arrest due to underlying cardiac condition; C25.9 Malignant neoplasm of pancreas, unspecified; C78.7 Secondary malignant neoplasm of liver and intrahepatic bile duct; E44.0 Moderate protein-calorie malnutrition; E87.2 Acidosis; I13.0 Hypertensive heart and chronic kidney disease with heart failure and stage 1 through stage 4 chronic kidney disease, or unspecified chronic kidney disease; I47.2 Ventricular tachycardia; E87.1 Hypo-osmolality and hyponatremia; Z51.5 Encounter for palliative care; Z66 Do not resuscitate; Z20.822 Contact with and (suspected) exposure to COVID-19; I48.0 Paroxysmal atrial fibrillation; E87.6 Hypokalemia; N18.9 Chronic kidney disease, unspecified; E55.9 Vitamin D deficiency, unspecified; E88.09 Other disorders of plasma-protein metabolism, not elsewhere classified; M10.9 Gout, unspecified; D69.6 Thrombocytopenia, unspecified; E83.42 Hypomagnesemia; R62.7 Adult failure to thrive; F32.9 Major depressive disorder, single episode, unspecified; I08.3 Combined rheumatic disorders of mitral, aortic and tricuspid valves; J45.909 Unspecified asthma, uncomplicated; Z68.23 Body mass index [BMI] 23.0-23.9, adult; Z85.3 Personal history of malignant neoplasm of breast; Z90.11 Acquired absence of right breast and nipple; Z90.12 Acquired absence of left breast and nipple; Z98.42 Cataract extraction status, left eye; Z90.710 Acquired absence of both cervix and uterus; Z98.890 Other specified postprocedural states; Z87.891 Personal history of nicotine dependence; Z88.1 Allergy status to other antibiotic agents; Z79.899 Other long term (current) drug therapy
CPT/HCPCS: 36415; 36569; 36600; 51702; 71045; 71260; 74177; 80048; 80053; 80069; 80202; 81001; 82803; 82947; 83605; 83735; 83880; 84100; 84132; 84484; 85025; 85027; 86022; 87040; 87086; 87184; 93005; 93010; 94660; 94667; 94668; 96365-59; 96366-59; 96367-59; 96372-59; 96375-59; 96376-59; 97110; 97162; 97166; 97530; 97535; 99285-25; A9270; C1751; C8929; J0282; J1650; J1940; J2060; J2270; J2543; J3010; J3370; J3475; J3480; J7030; J7050; J7060; Q9957; Q9967; U0004

== ENCOUNTER 2020-12-19 22:37 | Emergency (ER) | payer MEDICARE, BC ==
[~2020-12-19] VITALS: Ht 167.6 cm; Wt 45.4 kg
[~2020-12-19 22:37] MED LIST changes: +AKWA Tears15 ML BOTHEYES; +AMOCLA875 PO; +ASPI81CH PO; +Acetaminophen650 M1 PO; +CARV3.125 PO; +FUROSEMIDE20 MG PO; +Lisinopril2.5 MG PO; +MIRALAX119 GM PO; +POTCHL20ER PO; +VISBIOME 112.51 EACH PO
== END 2020-12-20 01:13 | disposition home or self-care (01) ==
LOC: ER 22:37
DX: C25.9 Malignant neoplasm of pancreas, unspecified (principal); I10 Essential (primary) hypertension; Z88.8 Allergy status to other drugs, medicaments and biological substances; Z88.1 Allergy status to other antibiotic agents; Z79.899 Other long term (current) drug therapy; Z79.82 Long term (current) use of aspirin; Z87.891 Personal history of nicotine dependence
CPT/HCPCS: 99283